=== PATIENT | male | born 1955 | race Caucasian/White ===

== ENCOUNTER 2020-10-31 08:04 | Outpatient (REF) | payer MEDICARE, OTHER, SELFPAY ==
[2020-10-31 11:05] LABS: MANUAL DIFF FLAG NO
[2020-10-31 11:12] LABS: Basophils Percent Auto 0.6 % (0-2); Eosinophils Absolute Auto 0.6 X10*3/uL (0.0-0.4); Eosinophils Percent Auto 8.2 % (0-4); Hematocrit 49.8 % (42-52); Hemoglobin 15.9 g/dl (14.0-18.0); Imm Gran Abs Auto 0.03 X10*3/uL (0.00-0.03); Imm Gran Pct Auto 0.4 % (0.0-0.4); Lymphocytes Absolute Auto 1.6 X10*3/uL (1.2-4.9); Lymphocytes Percent Auto 23.1 % (20-40); Mean Corpuscular HGB Conc 31.9 g/dl (31.0-36.0); Mean Corpuscular Hemoglobin 29.6 pg (27.0-33.0); Mean Corpuscular Volume 92.7 fL (80-98); Mean Platelet Volume 10.3 fL (9.4-12.4); Monocytes Absolute Auto 0.7 X10*3/uL (0.1-1.2); Monocytes Percent Auto 10.1 % (2-11); Neutrophils Absolute Auto 4.1 X10*3/uL (2.0-8.3); Neutrophils Percent Auto 57.6 % (45-73); Platelet Count 194 X10*3/uL (160-400); Red Blood Count 5.37 X10*6/uL (4.60-5.80); Red Cell Distribution Width 14.1 % (11.0-16.0); White Blood Count 7.1 X10*3/uL (4.8-10.8)
[2020-10-31 11:34] LABS: Alanine Aminotransferase 22 U/L (0-40); Albumin Level 4.7 g/dL (3.5-5.0); Alkaline Phosphatase 78 U/L (39-117); Anion Gap 18 (12-20); Aspartate Amino Transferase 18 U/L (5-37); Bilirubin Total 0.6 mg/dL (0.0-1.0); Blood Urea Nitrogen 18 mg/dL (9-16); Calcium 9.7 mg/dL (8.4-10.2); Carbon Dioxide 25 mmol/L (22-29); Chloride 105 mmol/L (96-108); Cholesterol 159 mg/dL; Estimated Glomerular Filt Rate > 60; Glucose Fasting 125 mg/dL (60-99); Glucose Urine UA >=1000 MG/DL (NEG); HDL Cholesterol 39 mg/dL; LDL Cholesterol Calculated 43 mg/dl; Leukocyte Esterase Urine NEG (NEG); Nitrite Urine NEG (NEG); Potassium 4.7 mmol/l (3.3-5.1); Sodium 143 mmol/L (135-145); Specific Gravity - Urine 1.025 (1.005-1.025); Total Protein 7.3 g/dL (6.5-8.0); Triglycerides 387 mg/dL; Urine Blood NEG (NEG); Urine Ketones NEG (NEG); Urine Protein NEG (NEG-TRACE)
[2020-10-31 11:35] LABS: Estimated Average Glucose 131 mg/dL; Hemoglobin A1c % 6.2 %
[2020-10-31 11:37] LABS: Appearance Urine HAZY; Color Urine YELLOW
[2020-10-31 11:39] LABS: Reflex LDLD? No
[2020-10-31 11:45] LABS: Prostate Specific Antigen Scr 2.09 ng/mL (<0.05-4.0)
[2020-10-31 11:46] LABS: Bacteria Urine TRACE /LPF; RBC Urine 0 /HPF (0); Squamous Epithelial Cell Urine TRACE /LPF
[2020-10-31 12:16] LABS: Creatinine Urine 81.24 mg/dL; Microalbum/Creatinine Ratio Ur 20.9 ug/mg cr
== END 2020-10-31 08:05 | disposition home or self-care (01) ==
LOC: HO.HMGCLDS 08:04
PROVIDERS: PCP Internal Medicine; Visit Provider Internal Medicine
DX: E11.9 Type 2 diabetes mellitus without complications (principal); E78.1 Pure hyperglyceridemia; R97.20 Elevated prostate specific antigen [PSA]; R16.2 Hepatomegaly with splenomegaly, not elsewhere classified; I25.2 Old myocardial infarction; Z12.5 Encounter for screening for malignant neoplasm of prostate
CPT/HCPCS: 36415; 80053; 80061; 81001; 82043; 83036; 84153; 85025

== ENCOUNTER 2021-03-29 08:18 | Day surgery (SDC) | payer MEDICARE, OTHER, SELFPAY ==
[2021-03-23 09:53] VITALS: BMI 37.9
--- NOTE | 2021-03-28 09:18 | HO.ANESPROP2 ---
HPI - Anesthesia Eval Consult details Narrative: 65yo M for Upper Endoscopy Per T/C with cardiology, as of 01/2021, no new symptoms/events, next appointment scheduled for 11/2021. 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 (see report below) Per PCP, no issues with penile implant procedure/anesthesia. [facility] Past Medical History Medical History CAD (coronary artery disease) COVID-19 vaccine series completed Diabetes Elevated cholesterol GERD (gastroesophageal reflux disease) Hiatal hernia HTN (hypertension) Myocardial infarction GAUTAM on CPAP RLS (restless legs syndrome) Surgical History Surgical History History of esophagogastroduodenoscopy (EGD) History of penile implant Hx of colonoscopy Hx of inguinal herniorrhaphy Social History Social History Patient Tobacco Use Status: Former Tobacco user Quit Date: 1999 Tobacco use type: Cigarette Use of substances other than those prescribed or required for medical reasons: No Are you DNR?: No Advance Directives: No Advance Directives Information Provided: No Advance Directives on File: No Meds Allergies Allergy/AdvReac Type Severity Reaction Status Date / Time No Known Allergies Allergy Verified 03/23/21 09:50 Home Medications Medication Instructions Recorded Confirmed Last Taken Type aspirin [Aspir-81] 81 mg PO DAILY 03/23/21 03/23/21 Unknown History atorvastatin 1 tab PO DAILY 03/23/21 03/23/21 Unknown History empagliflozin [Jardiance] 1 tab PO DAILY 03/23/21 03/23/21 Unknown History lisinopril 1 tab PO DAILY 03/23/21 03/23/21 Unknown History metformin 2 tab PO BID 03/23/21 03/23/21 Unknown History metoprolol succinate 1 tab PO DAILY 03/23/21 03/23/21 Unknown History omeprazole 1 cap PO DAILY 03/23/21 03/23/21 Unknown History ropinirole 1 tab PO BEDTIME 03/23/21 03/23/21 Unknown History sitagliptin [Januvia] 1 tab PO DAILY 03/23/21 03/23/21 Unknown History Exam Exam Date and Time: March 28, 2021 0918 Height,Weight and Vital Signs: Height 5 ft 6 in Weight 106.594 kg Pertinent Lab Results Pertinent Lab Results: Laboratory Tests 10/31/20 10/31/20 08:15 08:15 WBC 7.1 Hgb 15.9 Hct 49.8 Plt Count 194 Sodium 143 Potassium 4.7 Chloride 105 Carbon Dioxide 25 BUN 18 H Creatinine 1.12 Narrative Narrative: Stress ECHO 01/2021 Normal resting echo at a target heart rate. Stress echo: LV becomes hyperdynamic and all LV segments augmented post exercise. Assessment and Plan Assessment Anesthesia Assessment: Chart Reviewed
--- NOTE | 2021-03-29 | ECG_ITS ---
Test Reason : CAD/STENT, PREOP Blood Pressure : / mmHG Vent. Rate : 073 BPM Atrial Rate : 073 BPM P-R Int : 186 ms QRS Dur : 092 ms QT Int : 370 ms P-R-T Axes : 047 -55 -20 degrees QTc Int : 407 ms Normal sinus rhythm Left anterior fascicular block Abnormal ECG When compared with ECG of 19-AUG-2011 13:36, Left anterior fascicular block is now Present Referred By: Jayde Unger Electronically Signed By:Weston Queen
--- NOTE | 2021-03-29 08:56 | HO.ANESPROP2 ---
[facility] Past Medical History Medical History CAD (coronary artery disease) COVID-19 vaccine series completed Diabetes Elevated cholesterol GERD (gastroesophageal reflux disease) Hiatal hernia HTN (hypertension) Myocardial infarction GAUTAM on CPAP RLS (restless legs syndrome) Surgical History Surgical History History of esophagogastroduodenoscopy (EGD) History of penile implant Hx of colonoscopy Hx of inguinal herniorrhaphy Social History Social History Patient Tobacco Use Status: Former Tobacco user Quit Date: 1999 Tobacco use type: Cigarette Use of substances other than those prescribed or required for medical reasons: No Are you DNR?: No Advance Directives: No Advance Directives Information Provided: No Advance Directives on File: No Meds Allergies Allergy/AdvReac Type Severity Reaction Status Date / Time No Known Allergies Allergy Verified 03/23/21 09:50 Active Medications: Current Medications Generic Name Dose Route Start Last Admin Trade Name Freq PRN Reason Stop Dose Admin Lactated Ringer's 1,000 mls @ 100 mls/hr 03/29/21 08:45 Lr IVCONT .Q10H [facility] Home Medications Medication Instructions Recorded Confirmed Last Taken Type aspirin [Aspir-81] 81 mg PO DAILY 03/23/21 03/23/21 Unknown History atorvastatin 1 tab PO DAILY 03/23/21 03/23/21 Unknown History empagliflozin [Jardiance] 1 tab PO DAILY 03/23/21 03/23/21 Unknown History lisinopril 1 tab PO DAILY 03/23/21 03/23/21 Unknown History metformin 2 tab PO BID 03/23/21 03/23/21 Unknown History metoprolol succinate 1 tab PO DAILY 03/23/21 03/23/21 Unknown History omeprazole 1 cap PO DAILY 03/23/21 03/23/21 Unknown History ropinirole 1 tab PO BEDTIME 03/23/21 03/23/21 Unknown History sitagliptin [Januvia] 1 tab PO DAILY 03/23/21 03/23/21 Unknown History Exam Exam Date and Time: March 29, 2021 0856 Height,Weight and Vital Signs: Height 5 ft 6 in Weight 106.594 kg Airway Mallampati Class: IV TM Dist: >3cm Neck ROM: Full Heart: RRR Lungs: CTA
[2021-03-29 08:58] VITALS: BP 121/69; PULSE 76; RESP 18; TEMP 36.8; O2SAT 93
[2021-03-29 08:58] LABS: Glucose, Whole Blood 112 mg/dL (60-115)
[2021-03-29] MEDS: Lactated Ringers 1,000 ML 100 ML IVCONT (09:21)
[2021-03-29 10:40] VITALS: BP 106/65; PULSE 77; RESP 16; TEMP 37.7; O2SAT 98
--- NOTE | 2021-03-29 10:43 | PM.OP ---
Brief Operative Note Date of Service: 03/29/21 Pre-op diagnosis: GERD, Bedoya's Esophagus Post-op diagnosis: other (Hiatal hernia, Gastric retention) Procedure: EGD with biopsies Surgeon: Marciano Rodríguez Anesthesia: MAC Was an Emergency Communications Operator used for this Procedure?: No Estimated blood loss (mL): 3.0 Pathology: other (A. EG Junction at 35cm) Condition: stable Disposition: PACU
[2021-03-29 10:55] VITALS: BP 115/74; PULSE 79; RESP 17; TEMP 36.6; O2SAT 98
--- NOTE | 2021-03-29 15:58 | HO.POSTANES ---
Post Anesthesia Evaluation Post Anesthesia Evaluation Vital Signs: Vital Signs Temp Pulse Resp BP Pulse Ox 03/29/21 10:55 97.8 F 79 17 115/74 98 03/29/21 10:40 99.8 F 77 16 106/65 98 03/29/21 08:58 98.2 F 76 18 121/69 93 Anesthesia: Monitored Mental Status: Awake Pain Control: Satisfactory Nausea/Vomiting: None Hydration: Adequate Anesthesia-Related Issues: No Anes. Related Issues Comments: a
--- NOTE | 2021-03-29 21:06 | OP_ITS ---
SURGEON: Marciano Rodríguez MD INDICATIONS: The patient presents for evaluation of gastroesophageal reflux and Bedoya's esophagus. Full consent obtained from him for this, including risks of bleeding and perforation. PREOPERATIVE DIAGNOSIS: POSTOPERATIVE DIAGNOSIS: PROCEDURE PERFORMED: Esophagogastroduodenoscopy with biopsies. ESTIMATED BLOOD LOSS: COMPLICATIONS: ANESTHESIA: Medication used, monitored anesthesia care. ASSISTANTS: SPECIMENS: PREOPERATIVE DIAGNOSES: Gastroesophageal reflux and Bedoya's esophagus. POSTOPERATIVE DIAGNOSES: Gastroesophageal reflux, Bedoya's esophagus, hiatal hernia, gastric retention. DESCRIPTION OF PROCEDURE: The patient was placed in the left lateral decubitus position. The Olympus video gastroscope was passed in the posterior oropharynx and upper esophagus under direct vision. The scope was passed slowly to the distal esophagus. The gastroesophageal junction appeared at 35 cm. There was a small area of probable Bedoya esophagus just above the EG junction at 35 cm. There was no associated esophagitis nor any mass. There was a moderate-sized hiatal hernia. The scope entered into the stomach. There was a moderate amount of retained old appearing food. I was able to advance to the pylorus and the duodenum was cannulated to the descending portion. The duodenum including the bulb appeared normal without mass or ulceration. The scope was withdrawn back in the stomach. The pyloric channel appeared normal. There was good peristalsis in the stomach. The majority of the stomach both in the forward viewing and retroflexed positions was obscured by the retained food, but I did not visualize any obvious ulcer disease nor mass. The scope was straightened and withdrawn back to the esophagus. Biopsies were obtained just above the EG junction at 35 cm. Proximal to that, the esophageal mucosa appeared normal. The scope was withdrawn from the patient. He tolerated the procedure well and was returned to recovery area in stable condition. IMPRESSION: Hiatal hernia, gastroesophageal reflux, history of Bedoya's esophagus. PLAN: The results of biopsy will be checked. Assuming there is no dysplasia, I would recommend a repeat upper endoscopy in 3 years. He will continue his current regimen of omeprazole. He was advised to resume his aspirin by tomorrow morning. He was taking it up until today.Given today's biopsies, I will just have him wait until tomorrow to take it again. He is due for a followup colonoscopy next year as well. In regard to the retained gastric contents, I suspect this is probably related to having him had a late meal last evening. I shall discuss this with him and his . He did not have any previous symptoms of early satiety, nausea, nor vomiting. However, if need be, I will order an outpatient gastric emptying study. MD FRANCES Madrigal/GLENYS / [id number] MTDD
== END 2021-03-29 11:19 | disposition home or self-care (01) ==
PROVIDERS: PCP Internal Medicine; Visit Provider Internal Medicine
PROC: 0DJ08ZZ Inspection of Upper Intestinal Tract, Via Natural or Artificial Opening Endoscopic (ICD-10-PCS; CPT 43235; principal; 2021-03-29 09:30)
DX: K22.70 Barrett's esophagus without dysplasia (principal); K21.9 Gastro-esophageal reflux disease without esophagitis; K44.9 Diaphragmatic hernia without obstruction or gangrene; I10 Essential (primary) hypertension; E11.9 Type 2 diabetes mellitus without complications; G47.33 Obstructive sleep apnea (adult) (pediatric); Z99.89 Dependence on other enabling machines and devices; Z79.899 Other long term (current) drug therapy; Z79.82 Long term (current) use of aspirin
CPT/HCPCS: 43239; 82947; 88305; 93005

== ENCOUNTER → 2021-05-15 07:37 | Outpatient (BNVA) | payer SELFPAY | PROVIDERS: PCP Internal Medicine; Visit Provider Internal Medicine | DX: Z02.79 Encounter for issue of other medical certificate (principal) ==

== ENCOUNTER 2021-05-16 10:51 | Outpatient (REF) | payer MEDICARE, OTHER, SELFPAY ==
[2021-05-16 11:26] LABS: Estimated Average Glucose 131 mg/dL; Hemoglobin A1c % 6.2 %
[2021-05-16 12:07] LABS: Alanine Aminotransferase 25 U/L (0-40); Albumin Level 4.6 g/dL (3.5-5.0); Alkaline Phosphatase 78 U/L (39-117); Aspartate Amino Transferase 27 U/L (5-37); Bilirubin Direct 0.3 mg/dL (0.0-0.5); Bilirubin Total 0.8 mg/dL (0.0-1.0); Cholesterol 152 mg/dL; Glucose Fasting 134 mg/dL (60-99); HDL Cholesterol 33 mg/dL; Total Protein 7.2 g/dL (6.5-8.0); Triglycerides 418 mg/dL
[2021-05-16 12:42] LABS: Reflex LDLD? Yes
[2021-05-17 22:32] LABS: LDL Cholesterol Direct 69 mg/dL (<100)
== END 2021-05-16 10:52 | disposition home or self-care (01) ==
LOC: HO.LNP 10:51
PROVIDERS: Visit Provider Internal Medicine
DX: E11.9 Type 2 diabetes mellitus without complications (principal); E78.1 Pure hyperglyceridemia
CPT/HCPCS: 80061; 80076; 82947; 83036; 83721

== ENCOUNTER 2021-06-27 10:24 | Outpatient (REF) | payer MEDICARE, OTHER, SELFPAY | END 2021-06-27 10:25 | disposition home or self-care (01) | LOC: HO.LAB 10:24 | PROVIDERS: PCP Internal Medicine; Visit Provider Internal Medicine | DX: Z20.822 Contact with and (suspected) exposure to COVID-19 (principal) | CPT/HCPCS: C9803; U0003; U0005 ==

== ENCOUNTER → 2021-08-30 07:40 | Outpatient (REF) | payer MEDICARE, OTHER, SELFPAY ==
--- NOTE | ~2021-08-30 | NM_ITS ---
EXAMINATION: TN RADIONUCLIDE SOLID FOOD GASTRIC EMPTYING 4-HOUR STUDY CLINICAL INFORMATION: Retained food in the stomach, GERD. COMPARISON: None TECHNIQUE: A standard meal consisting of 4 oz of Egg Beaters brand tagged with 1.0 microcuries Tc-99m Sulfur Colloid, 8 oz water and 2 slices of toast with jelly was administered orally to the patient. Images were obtained using a dual head gamma camera in the anterior and posterior projections over of the stomach immediately post ingestion and at hourly intervals up to 4 hours post ingestion. The anterior and posterior counts at each time interval were averaged using the geometric mean and expressed as percentage of the immediate post ingestion counts. FINDINGS: There is good visualization of activity in the stomach immediately post ingestion. As the study progresses, there is good clearance of activity from the stomach and visualization of progressively increasing small bowel activity. By the end of the study, there is almost no retention noted in the stomach. Retention in the stomach at each time interval was: 1 hour 63% (normal 37%-90%) 2 hours 37% (normal 30%-60%) 3 hours 1% 4 hours not imaged (normal 0%-10%) TN/TN gastric emptying study IMPRESSION: Normal 4-hour solid food gastric emptying study.
== END ==
LOC: HO.NUCMED 07:40
PROVIDERS: Visit Provider Internal Medicine
DX: K21.9 Gastro-esophageal reflux disease without esophagitis (principal); K31.89 Other diseases of stomach and duodenum
CPT/HCPCS: 78264; A9541

== ENCOUNTER 2021-11-21 11:11 | Outpatient (REF) | payer MEDICARE, OTHER, SELFPAY ==
[2021-11-21 11:14] LABS: MANUAL DIFF FLAG NO
[2021-11-21 11:29] LABS: Basophils Percent Auto 0.5 % (0-2); Eosinophils Absolute Auto 0.4 X10*3/uL (0.0-0.4); Eosinophils Percent Auto 4.6 % (0-4); Hematocrit 50.5 % (42.0-52.0); Hemoglobin 16.4 g/dl (14.0-18.0); Imm Gran Abs Auto 0.04 X10*3/uL (0.00-0.03); Imm Gran Pct Auto 0.5 % (0.0-0.4); Lymphocytes Absolute Auto 2.1 X10*3/uL (1.2-4.9); Lymphocytes Percent Auto 24.4 % (20-40); Mean Corpuscular HGB Conc 32.5 g/dl (31.0-36.0); Mean Corpuscular Hemoglobin 29.7 pg (27.0-33.0); Mean Corpuscular Volume 91.5 fL (80.0-98.0); Mean Platelet Volume 10.7 fL (9.4-12.4); Monocytes Absolute Auto 0.9 X10*3/uL (0.1-1.2); Monocytes Percent Auto 10.6 % (2-11); Neutrophils Absolute Auto 5.2 x10*3/uL (2.0-8.3); Neutrophils Percent Auto 59.4 % (45-73); Platelet Count 213 X10*3/uL (160-400); Red Blood Count 5.52 X10*6/uL (4.60-5.80); Red Cell Distribution Width 14.2 % (11.0-16.0); White Blood Count 8.8 X10*3/uL (4.8-10.8)
[2021-11-21 12:03] LABS: Alanine Aminotransferase 24 U/L (0-40); Albumin Level 4.6 g/dL (3.5-5.0); Alkaline Phosphatase 78 U/L (39-117); Anion Gap 15 (12-20); Aspartate Amino Transferase 27 U/L (5-37); Bilirubin Direct 0.3 mg/dL (0.0-0.5); Blood Urea Nitrogen 18 mg/dL (9-16); Carbon Dioxide 26 mmol/L (22-29); Chloride 104 mmol/L (96-108); Cholesterol 149 mg/dL; Estimated Glomerular Filt Rate > 60; Glucose Fasting 112 mg/dL (60-99); HDL Cholesterol 34 mg/dL; Potassium 4.6 mmol/L (3.3-5.1); Sodium 140 mmol/L (135-145); Total Protein 7.4 g/dL (6.5-8.0); Triglycerides 430 mg/dL
[2021-11-21 12:09] LABS: PSA,Total (Free>4and<10) 1.66 ng/mL (0.00-4.00)
[2021-11-21 12:41] LABS: Estimated Average Glucose 134 mg/dL; Hemoglobin A1c % 6.3 %
== END 2021-11-21 11:12 | disposition home or self-care (01) ==
LOC: HO.LNP 11:11
PROVIDERS: PCP Internal Medicine; Visit Provider Internal Medicine
DX: Z12.5 Encounter for screening for malignant neoplasm of prostate (principal); E87.1 Hypo-osmolality and hyponatremia; R97.20 Elevated prostate specific antigen [PSA]; R16.2 Hepatomegaly with splenomegaly, not elsewhere classified; E11.40 Type 2 diabetes mellitus with diabetic neuropathy, unspecified
CPT/HCPCS: 80053; 80061; 80076; 82248; 83036; 84153; 85025

== ENCOUNTER 2022-02-16 10:45 | Outpatient (REF) | payer MEDICARE, OTHER, SELFPAY ==
[2022-02-16 11:10] LABS: Appearance Urine CLEAR; Color Urine YELLOW; Glucose Urine UA >=1000 MG/DL (NEG); Leukocyte Esterase Urine NEG (NEG); Nitrite Urine NEG (NEG); PH 5.5 (5.0-8.0); Urine Blood NEG (NEG); Urine Ketones NEG (NEG); Urine Protein NEG (NEG-TRACE)
[2022-02-16 11:16] LABS: Creatinine Urine 78.12 mg/dL; Microalbum/Creatinine Ratio Ur 6.4 ug/mg cr
[2022-02-16 11:59] LABS: Squamous Epithelial Cell Urine TRACE /LPF
[2022-02-16 12:00] LABS: RBC Urine 0 /HPF (0); WBC Urine 0-2 /HPF (0-4)
== END 2022-02-16 10:46 | disposition home or self-care (01) ==
LOC: HO.LNP 10:45
PROVIDERS: Visit Provider Internal Medicine
DX: E11.40 Type 2 diabetes mellitus with diabetic neuropathy, unspecified (principal)
CPT/HCPCS: 81001; 82043

== ENCOUNTER → 2022-04-30 09:49 | Outpatient (BNVA) | payer SELFPAY | PROVIDERS: PCP Internal Medicine; Visit Provider Internal Medicine | DX: Z02.79 Encounter for issue of other medical certificate (principal) ==

== ENCOUNTER 2022-08-23 10:37 | Outpatient (REF) | payer MEDICARE, OTHER, SELFPAY ==
[2022-08-23 10:59] LABS: Alanine Aminotransferase 35 U/L (0-40); Albumin Level 4.4 g/dL (3.5-5.0); Alkaline Phosphatase 86 U/L (39-117); Aspartate Amino Transferase 33 U/L (5-37); Bilirubin Direct 0.3 mg/dL (0.0-0.5); Bilirubin Total 0.7 mg/dL (0.0-1.0); Cholesterol 142 mg/dL; Glucose Fasting 117 mg/dL (60-99); HDL Cholesterol 31 mg/dL; LDL Cholesterol Calculated 38 mg/dl; Total Protein 7.2 g/dL (6.5-8.0); Triglycerides 365 mg/dL
[2022-08-23 12:27] LABS: Estimated Average Glucose 134 mg/dL; Hemoglobin A1c % 6.3 %
[2022-08-23 14:57] LABS: Reflex LDLD? No
== END 2022-08-23 10:38 | disposition home or self-care (01) ==
LOC: HO.LNP 10:37
PROVIDERS: Visit Provider Internal Medicine
DX: E11.9 Type 2 diabetes mellitus without complications (principal); E78.1 Pure hyperglyceridemia
CPT/HCPCS: 80061; 80076; 82947; 83036

== ENCOUNTER 2022-08-29 06:19 | Day surgery (SDC) | payer MEDICARE, OTHER, SELFPAY ==
--- NOTE | 2022-08-28 10:33 | HO.ANESPROP2 ---
Documented by User: Jayde Unger NP 08/28/22 10:38 HPI - Anesthesia Eval Consult details Narrative: 67yo M for Colonoscopy CAD with [place] and stent x 2018 (Stable at yearly cardio appointment) [facility] Past Medical History Medical History CAD (coronary artery disease) COVID-19 vaccine series completed Diabetes Elevated cholesterol GERD (gastroesophageal reflux disease) Hiatal hernia HTN (hypertension) Myocardial infarction GAUTAM on CPAP RLS (restless legs syndrome) Surgical History Surgical History History of esophagogastroduodenoscopy (EGD) History of penile implant Hx of colonoscopy Hx of inguinal herniorrhaphy Social History Social History Patient Tobacco Use Status: Former Tobacco user Quit Date: 20 years ago Tobacco use type: Cigarette Use of substances other than those prescribed or required for medical reasons: No Are you DNR?: No Advance Directives: No Advance Directives Information Provided: Yes Meds Allergies Allergy/AdvReac Type Severity Reaction Status Date / Time No Known Allergies Allergy Verified 03/23/21 09:50 Home Medications Medication Instructions Recorded Confirmed Last Taken Type aspirin 81 mg tablet,delayed 81 mg PO DAILY 03/23/21 03/23/21 08/26/22 History release atorvastatin 80 mg tablet 1 tab PO DAILY 03/23/21 03/23/21 Unknown History empagliflozin 25 mg tablet 1 tab PO DAILY 03/23/21 03/23/21 Unknown History (Jardiance) lisinopril 5 mg tablet 1 tab PO DAILY 03/23/21 03/23/21 08/29/22 History metformin 500 mg tablet 2 tab PO BID 03/23/21 03/23/21 Unknown History metoprolol succinate 50 mg 1 tab PO DAILY 03/23/21 03/23/21 Unknown History tablet,extended release 24 hr omeprazole 40 mg capsule,delayed 1 cap PO DAILY 03/23/21 03/23/21 Unknown History release ropinirole 1 mg tablet 1 tab PO BEDTIME 03/23/21 03/23/21 Unknown History sitagliptin 100 mg tablet (Januvia) 1 tab PO DAILY 03/23/21 03/23/21 Unknown History Exam Exam Date and Time: August 28, 2022 1033 Pertinent Lab Results Pertinent Lab Results: Laboratory Tests 11/21/21 11/21/21 09:30 09:30 WBC 8.8 Hgb 16.4 Hct 50.5 Plt Count 213 Sodium 140 Potassium 4.6 Chloride 104 Carbon Dioxide 26 BUN 18 H Creatinine 1.17 Narrative Narrative: EKG 11/2021 NSR @ 64 LAD Otherwise normal Assessment and Plan Assessment Anesthesia Assessment: Chart Reviewed Documented by User: Manjula Martinez MD 08/29/22 07:19 [facility] Past Medical History Medical History CAD (coronary artery disease) COVID-19 vaccine series completed Diabetes Elevated cholesterol GERD (gastroesophageal reflux disease) Hiatal hernia HTN (hypertension) Myocardial infarction GAUTAM on CPAP RLS (restless legs syndrome) Family History Family history of problems with anesthesia: No Surgical History Surgical History History of esophagogastroduodenoscopy (EGD) History of penile implant Hx of colonoscopy Hx of inguinal herniorrhaphy History of Problems with Anesthesia: No Social History Social History Patient Tobacco Use Status: Former Tobacco user Quit Date: 20 years ago Tobacco use type: Cigarette Use of substances other than those prescribed or required for medical reasons: No Are you DNR?: No Advance Directives: No Advance Directives Information Provided: Yes Meds Allergies Allergy/AdvReac Type Severity Reaction Status Date / Time No Known Allergies Allergy Verified 03/23/21 09:50 Home Medications Medication Instructions Recorded Confirmed Last Taken Type aspirin 81 mg tablet,delayed 81 mg PO DAILY 03/23/21 03/23/21 08/26/22 History release atorvastatin 80 mg tablet 1 tab PO DAILY 03/23/21 03/23/21 Unknown History empagliflozin 25 mg tablet 1 tab PO DAILY 03/23/21 03/23/21 Unknown History (Jardiance) lisinopril 5 mg tablet 1 tab PO DAILY 03/23/21 03/23/21 08/29/22 History metformin 500 mg tablet 2 tab PO BID 03/23/21 03/23/21 Unknown History metoprolol succinate 50 mg 1 tab PO DAILY 03/23/21 03/23/21 Unknown History tablet,extended release 24 hr omeprazole 40 mg capsule,delayed 1 cap PO DAILY 03/23/21 03/23/21 Unknown History release ropinirole 1 mg tablet 1 tab PO BEDTIME 03/23/21 03/23/21 Unknown History sitagliptin 100 mg tablet (Octuvia) 1 tab PO DAILY 03/23/21 03/23/21 Unknown History Exam Airway Mallampati Class: II TM Dist: >3cm Neck ROM: Full Assessment and Plan Assessment Anesthesia Assessment: Anesthesia Plan Discussed Final Anesthetic Review Family History of Problems with Anesthesia: No History of Problems with Anesthesia: No NPO: Yes ASA Class: III Final Preanesthetic Review: No Changes in Pt Med Stat, Meds/Allgs Chart Reviewed, Consent Obtained/Reviewed and Anes Risks/Benef Reviewed Patient Risk: Intermediate Procedure Risk: Low Anesthetic Plan Anesthetic Plan: MAC: Disposition: Standard PACU
[2022-08-29 06:36] VITALS: BMI 35.9
[2022-08-29 06:39] VITALS: BP 128/78; PULSE 77; RESP 18; TEMP 36.4; O2SAT 97
[2022-08-29] MEDS: Lactated Ringers 1,000 ML 100 ML IVCONT (06:56)
[2022-08-29 07:02] LABS: Glucose, Whole Blood 109 mg/dL (60-115)
[2022-08-29 08:29] VITALS: BP 90/40; PULSE 73; RESP 16; TEMP 36.5; O2SAT 95
--- NOTE | 2022-08-29 08:32 | PM.OP ---
Brief Operative Note Date of Service: 08/29/22 Pre-op diagnosis: Screening Post-op diagnosis: other (Colon polyp) Procedure: Colonoscopy to the cecum and TI with hot snare polypectomy x 1 , and placement of 1 Resolution clip Surgeon: Marciano Rodríguez Anesthesia: MAC Was an Rubber Compounder Mixer used for this Procedure?: No Estimated blood loss (mL): 0 Pathology: other (A. Cecal polyp) Condition: stable Disposition: PACU
[2022-08-29 08:44] VITALS: BP 100/58; PULSE 64; RESP 18; TEMP 36.5; O2SAT 96
--- NOTE | 2022-08-29 09:18 | OP_ITS ---
SURGEON: Marciano Rodríguez MD INDICATIONS: The patient presents for evaluation of colorectal cancer screening. Full consent has been obtained from him for this, including risks of bleeding and perforation. PREOPERATIVE DIAGNOSIS: Colorectal cancer screening. POSTOPERATIVE DIAGNOSIS: Colorectal cancer screening, colon polyp, diverticulosis and internal hemorrhoids. PROCEDURE PERFORMED: Colonoscopy to cecum and terminal ileum with hot snare polypectomy and placement of one resolution clip. ESTIMATED BLOOD LOSS: COMPLICATIONS: ANESTHESIA: ASSISTANTS: SPECIMENS: PREOPERATIVE MEDICATION USED: Monitored anesthesia care. DESCRIPTION OF PROCEDURE: The patient was placed in the left lateral decubitus position. The digital rectal exam revealed no abnormalities. The Olympus video pediatric colonoscope was entered into the rectum and advanced easily to the cecum. Once in the cecum, I did identify a cecal pouch with appendiceal orifice and a normal-appearing ileocecal valve. The terminal ileum was cannulated and appeared normal. Scope was withdrawn back in the colon. The entire cecum and the ileocecal valve were well visualized. In the cecum, near the area of the appendiceal orifice, was an approximately 10 mm slightly raised polyp, which was removed by hot snare polypectomy and recovered by suction. The polypectomy site appeared clean, without any sign of residual polyp nor bleeding. A single resolution clip was applied with good deployment and good hemostasis, as he had to go back on his aspirin. The remainder of the cecum appeared normal. The scope was then slowly withdrawn assessing all mucosal surfaces carefully. Preparation was excellent. I did not visualize any sign of other polyps, colitis, nor angiodysplasia. There was a mild amount of sigmoid diverticulosis. In the rectum, scope was retroflexed, visualizing internal hemorrhoids, but no other pathology. The rectal mucosa appeared normal. The scope was straightened and withdrawn from the patient. He tolerated the procedure well and was returned to the recovery area in stable condition. IMPRESSION: 1. Colon polyp. 2. Diverticulosis. 3. Internal hemorrhoids. PLAN: The results of the pathology will be checked. If this is a tubular adenoma, I would recommend a followup coloscopy in 5 years. If it is only hyperplastic, then I would recommend a followup coloscopy in 10 years, although at that point, he would be almost 78 and we would need to take his clinical condition into account. He was advised to resume his aspirin in 24 hours. MD FRANCES Madrigal/GLENYS / [id number]
== END 2022-08-29 09:22 | disposition home or self-care (01) ==
PROVIDERS: PCP Internal Medicine; Visit Provider Internal Medicine
PROC: 0DJD8ZZ Inspection of Lower Intestinal Tract, Via Natural or Artificial Opening Endoscopic (ICD-10-PCS; CPT 45378; principal; 2022-08-29 07:30)
DX: Z12.11 Encounter for screening for malignant neoplasm of colon (principal); D12.0 Benign neoplasm of cecum; K57.30 Diverticulosis of large intestine without perforation or abscess without bleeding; K64.8 Other hemorrhoids; K21.9 Gastro-esophageal reflux disease without esophagitis; K22.70 Barrett's esophagus without dysplasia; G47.33 Obstructive sleep apnea (adult) (pediatric); I10 Essential (primary) hypertension; E78.5 Hyperlipidemia, unspecified; E11.9 Type 2 diabetes mellitus without complications; Z79.84 Long term (current) use of oral hypoglycemic drugs; Z79.899 Other long term (current) drug therapy; Z79.82 Long term (current) use of aspirin; Z99.89 Dependence on other enabling machines and devices; Z87.891 Personal history of nicotine dependence; Z96.0 Presence of urogenital implants
CPT/HCPCS: 45385; 82947; 88305; J2250

== ENCOUNTER 2022-11-29 08:43 | Outpatient (REF) | payer MEDICARE, OTHER, SELFPAY ==
[2022-11-29 09:41] LABS: Alanine Aminotransferase 36 U/L (0-40); Albumin Level 4.2 g/dL (3.5-5.0); Alkaline Phosphatase 80 U/L (39-117); Anion Gap 15 (12-20); Aspartate Amino Transferase 41 U/L (5-37); Blood Urea Nitrogen 14 mg/dL (9-16); Calcium 9.1 mg/dL (8.4-10.2); Carbon Dioxide 23 mmol/L (22-29); Chloride 109 mmol/L (96-108); Cholesterol 148 mg/dL; Estimated Glomerular Filt Rate > 60; Glucose Random 139 mg/dL (60-115); HDL Cholesterol 32 mg/dL; LDL Cholesterol Calculated 48 mg/dl; Potassium 4.6 mmol/L (3.3-5.1); Sodium 142 mmol/L (135-145); Total Protein 6.6 g/dL (6.5-8.0); Triglycerides 341 mg/dL
== END 2022-11-29 08:44 | disposition home or self-care (01) ==
LOC: HO.LAB 08:43
PROVIDERS: PCP Internal Medicine; Visit Provider Nurse Practitioner Acute Care
DX: I25.118 Atherosclerotic heart disease of native coronary artery with other forms of angina pectoris (principal)
CPT/HCPCS: 36415; 80053; 80061

== ENCOUNTER 2023-02-14 10:36 | Outpatient (REF) | payer MEDICARE, OTHER, SELFPAY ==
[2023-02-14 10:41] LABS: MANUAL DIFF FLAG NO
[2023-02-14 10:54] LABS: Basophils Absolute Auto 0.1 X10*3/uL (0.0-0.2); Basophils Percent Auto 0.8 % (0-2); Eosinophils Absolute Auto 0.9 X10*3/uL (0.0-0.4); Eosinophils Percent Auto 11.6 % (0-4); Hematocrit 49.5 % (42.0-52.0); Hemoglobin 16.2 g/dl (14.0-18.0); Imm Gran Abs Auto 0.03 X10*3/uL (0.00-0.03); Imm Gran Pct Auto 0.4 % (0.0-0.4); Lymphocytes Percent Auto 25.7 % (20-40); Mean Corpuscular HGB Conc 32.7 g/dl (31.0-36.0); Mean Corpuscular Hemoglobin 29.9 pg (27.0-33.0); Mean Corpuscular Volume 91.3 fL (80.0-98.0); Mean Platelet Volume 10.2 fL (9.4-12.4); Monocytes Absolute Auto 0.9 X10*3/uL (0.1-1.2); Monocytes Percent Auto 11.4 % (2-11); Neutrophils Absolute Auto 3.9 x10*3/uL (2.0-8.3); Neutrophils Percent Auto 50.1 % (45-73); Platelet Count 197 X10*3/uL (160-400); Red Blood Count 5.42 X10*6/uL (4.60-5.80); Red Cell Distribution Width 14.6 % (11.0-16.0); White Blood Count 7.7 X10*3/uL (4.8-10.8)
[2023-02-14 10:58] LABS: Appearance Urine Clear; Color Urine Yellow; Glucose Urine UA >=1000 mg/dL (Negative); Leukocyte Esterase Urine Negative (Negative); Nitrite Urine Negative (Negative); PH 5.5 (5.0-9.0); Specific Gravity - Urine >= 1.030 (1.005-1.025); UMIC TRIGGER UACC YES; Urine Blood Negative (Negative); Urine Ketones Negative (Negative); Urine Protein Negative (Neg-Trace)
[2023-02-14 11:05] LABS: Bacteria Urine None Seen (None Seen); Hyaline Casts Urine 0-2 /LPF (0-2); RBC Urine 0-2 /HPF (0-2); Squamous Epithelial Cell Urine 0-2 /HPF (0-2); WBC Urine 0-5 /HPF (0-5)
[2023-02-14 11:14] LABS: Estimated Average Glucose 134 mg/dL; Hemoglobin A1c % 6.3 %
[2023-02-14 11:27] LABS: Alanine Aminotransferase 29 U/L (0-40); Albumin Level 4.6 g/dL (3.5-5.0); Alkaline Phosphatase 83 U/L (39-117); Anion Gap 13 (12-20); Aspartate Amino Transferase 38 U/L (5-37); Bilirubin Total 0.9 mg/dL (0.0-1.0); Blood Urea Nitrogen 13 mg/dL (9-16); Calcium 9.4 mg/dL (8.4-10.2); Carbon Dioxide 27 mmol/L (22-29); Chloride 107 mmol/L (96-108); Cholesterol 142 mg/dL; Estimated Glomerular Filt Rate > 60; Glucose Fasting 118 mg/dL (60-99); HDL Cholesterol 33 mg/dL; LDL Cholesterol Calculated 49 mg/dl; Potassium 4.5 mmol/L (3.3-5.1); Sodium 142 mmol/L (135-145); Total Protein 7.1 g/dL (6.5-8.0); Triglycerides 302 mg/dL
[2023-02-14 11:46] LABS: PSA,Total (Free>4and<10) 1.47 ng/mL (0.00-4.00)
[2023-02-14 11:47] LABS: Microalbum/Creatinine Ratio Ur 15.7 ug/mg cr
== END 2023-02-14 10:37 | disposition home or self-care (01) ==
LOC: HO.LNP 10:36
PROVIDERS: Visit Provider Internal Medicine
DX: Z12.5 Encounter for screening for malignant neoplasm of prostate (principal); E78.1 Pure hyperglyceridemia; R97.20 Elevated prostate specific antigen [PSA]; E11.40 Type 2 diabetes mellitus with diabetic neuropathy, unspecified
CPT/HCPCS: 80053; 80061; 81001; 82043; 83036; 84153; 85025

== ENCOUNTER → 2023-03-25 07:31 | Outpatient (BNVA) | payer SELFPAY | PROVIDERS: PCP Internal Medicine; Visit Provider Internal Medicine | DX: Z02.79 Encounter for issue of other medical certificate (principal) ==

== ENCOUNTER 2023-08-13 07:10 | Outpatient (REF) | payer MEDICARE, OTHER, SELFPAY ==
[2023-08-13 07:56] LABS: Estimated Average Glucose 128 mg/dL; Hemoglobin A1c % 6.1 % (<6.0)
[2023-08-13 08:14] LABS: Alanine Aminotransferase 27 U/L (0-40); Albumin Level 4.3 g/dL (3.5-5.0); Alkaline Phosphatase 81 U/L (39-117); Aspartate Amino Transferase 28 U/L (5-37); Bilirubin Direct 0.3 mg/dL (0.0-0.5); Bilirubin Total 0.8 mg/dL (0.0-1.0); Glucose Fasting 139 mg/dL (60-99); Total Protein 7.1 g/dL (6.5-8.0)
[2023-08-13 08:19] LABS: Cholesterol 147 mg/dL (<200); HDL Cholesterol 31 mg/dL (>40); Triglycerides 490 mg/dL (<150)
[2023-08-13 08:31] LABS: Reflex LDLD? Yes
[2023-08-15 00:29] LABS: LDL Cholesterol Direct 51 mg/dL (<100)
== END 2023-08-13 07:11 | disposition home or self-care (01) ==
LOC: HO.LAB 07:10
PROVIDERS: PCP Internal Medicine; Visit Provider Internal Medicine
DX: E11.9 Type 2 diabetes mellitus without complications (principal); E78.1 Pure hyperglyceridemia
CPT/HCPCS: 36415; 80061; 80076; 82947; 83036; 83721

== ENCOUNTER 2024-02-18 12:49 | Outpatient (REF) | payer MEDICARE, OTHER, SELFPAY ==
[2024-02-18 12:59] LABS: MANUAL DIFF FLAG NO
[2024-02-18 13:06] LABS: Basophils Absolute Auto 0.1 X10*3/uL (0.0-0.2); Basophils Percent Auto 0.8 % (0-2); Eosinophils Absolute Auto 0.4 X10*3/uL (0.0-0.4); Eosinophils Percent Auto 6.5 % (0-4); Hematocrit 45.9 % (42.0-52.0); Hemoglobin 15.2 g/dl (14.0-18.0); Imm Gran Abs Auto 0.07 X10*3/uL (0.00-0.03); Imm Gran Pct Auto 1.1 % (0.0-0.4); Lymphocytes Absolute Auto 1.8 X10*3/uL (1.2-4.9); Lymphocytes Percent Auto 29.2 % (20-40); Mean Corpuscular HGB Conc 33.1 g/dl (31.0-36.0); Mean Corpuscular Hemoglobin 30.5 pg (27.0-33.0); Mean Platelet Volume 10.7 fL (9.4-12.4); Monocytes Absolute Auto 0.7 X10*3/uL (0.1-1.2); Monocytes Percent Auto 12.1 % (2-11); Neutrophils Absolute Auto 3.1 x10*3/uL (2.0-8.3); Neutrophils Percent Auto 50.3 % (45-73); Platelet Count 189 X10*3/uL (160-400); Red Blood Count 4.99 X10*6/uL (4.60-5.80); Red Cell Distribution Width 14.7 % (11.0-16.0); White Blood Count 6.1 X10*3/uL (4.8-10.8)
[2024-02-18 13:13] LABS: Appearance Urine Clear; Color Urine Yellow; Glucose Urine UA >=1000 mg/dL (Negative); Leukocyte Esterase Urine Negative (Negative); Nitrite Urine Negative (Negative); PH 5.5 (5.0-9.0); Specific Gravity - Urine >= 1.030 (1.005-1.025); UMIC TRIGGER UACC YES; Urine Blood Negative (Negative); Urine Ketones Negative (Negative); Urine Protein Negative (Neg-Trace)
[2024-02-18 13:17] LABS: Alanine Aminotransferase 25 U/L (0-40); Albumin Level 4.4 g/dL (3.5-5.0); Alkaline Phosphatase 83 U/L (39-117); Anion Gap 15 (12-20); Aspartate Amino Transferase 33 U/L (5-37); Bilirubin Total 0.8 mg/dL (0.0-1.0); Blood Urea Nitrogen 15 mg/dL (9-16); Calcium 9.7 mg/dL (8.4-10.2); Carbon Dioxide 24 mmol/L (22-29); Chloride 107 mmol/L (96-108); Cholesterol 140 mg/dL (<200); Estimated Glomerular Filt Rate > 60; Glucose Fasting 132 mg/dL (60-99); HDL Cholesterol 33 mg/dL (>40); Potassium 4.7 mmol/L (3.3-5.1); Sodium 141 mmol/L (135-145); Total Protein 7.2 g/dL (6.5-8.0); Triglycerides 516 mg/dL (<150)
[2024-02-18 13:19] LABS: Bacteria Urine None Seen (None Seen); Hyaline Casts Urine 0-2 /LPF (0-2); RBC Urine 0-2 /HPF (0-2); Squamous Epithelial Cell Urine 0-2 /HPF (0-2); WBC Urine 0-5 /HPF (0-5)
[2024-02-18 13:39] LABS: PSA,Total (Free>4and<10) 1.16 ng/mL (0.00-4.00)
[2024-02-18 14:15] LABS: Creatinine Urine 63.44 mg/dL; Microalbum/Creatinine Ratio Ur 33.1 ug/mg cr (<30)
== END 2024-02-18 12:50 | disposition home or self-care (01) ==
LOC: HO.LNP 12:49
PROVIDERS: Visit Provider Internal Medicine
DX: R97.20 Elevated prostate specific antigen [PSA] (principal); E11.40 Type 2 diabetes mellitus with diabetic neuropathy, unspecified; Z12.5 Encounter for screening for malignant neoplasm of prostate
CPT/HCPCS: 80053; 80061; 81001; 81003; 82043; 82570; 84153; 85025

== ENCOUNTER 2024-02-25 11:18 | Outpatient (REF) | payer MEDICARE, OTHER, SELFPAY ==
[2024-02-25 12:38] LABS: Estimated Average Glucose 151 mg/dL; Hemoglobin A1c % 6.9 % (<6.0)
[2024-02-26 11:48] LABS: LDL Cholesterol Direct 53 mg/dL (<100)
== END 2024-02-25 11:19 | disposition home or self-care (01) ==
LOC: HO.LNP 11:18
PROVIDERS: Visit Provider Internal Medicine
DX: I25.2 Old myocardial infarction (principal); E11.40 Type 2 diabetes mellitus with diabetic neuropathy, unspecified
CPT/HCPCS: 83036; 83721

== ENCOUNTER → 2024-03-25 07:36 | Outpatient (BNVA) | payer SELFPAY | PROVIDERS: PCP Internal Medicine; Visit Provider Internal Medicine | DX: Z02.79 Encounter for issue of other medical certificate (principal) ==

== ENCOUNTER 2024-08-17 06:24 | Day surgery (SDC) | payer MEDICARE, OTHER, SELFPAY ==
--- NOTE | 2024-08-14 08:49 | HO.ANESPROP2 ---
Documented by User: Jayde Unger NP 08/14/24 09:05 HPI - Anesthesia Eval Consult details Narrative: 69yo M for Upper Endoscopy CAD s/p [place] with stent 2018. Follows [facility]. Not seen since 01/2023, scheduled in 09/2024. T/C to patient:No CP/SOB with minimal activity. Anesthesia Pre-Procedure Meds Is the patient on any of the following meds?: GLP1/DPP4 and SGLT2 Inhib PMFSH Past Medical History Medical History CAD (coronary artery disease) COVID-19 vaccine series completed Diabetes Elevated cholesterol GERD (gastroesophageal reflux disease) Hiatal hernia HTN (hypertension) Myocardial infarction GAUTAM on CPAP RLS (restless legs syndrome) Family History Family history of problems with anesthesia: No Surgical History Surgical History History of esophagogastroduodenoscopy (EGD) History of penile implant Hx of colonoscopy Hx of inguinal herniorrhaphy History of Problems with Anesthesia: No Social History Social History Patient Tobacco Use Status: Former Tobacco user Tobacco use type: Cigarette Use of substances other than those prescribed or required for medical reasons: No Are you DNR?: No Advance Directives: No Advance Directives Information Provided: Yes Recently lost weight without trying: No Nutrition Risks: No Nutritional Risk Poor oral hygiene: No Meds Allergies Allergy/AdvReac Type Severity Reaction Status Date / Time No Known Allergies Allergy Verified 03/23/21 09:50 Home Medications ?Medication ?Instructions ?Recorded ?Confirmed ?Last Taken ?Type aspirin 81 mg tablet,delayed 81 mg PO DAILY 03/23/21 03/23/21 08/12/24 History release atorvastatin 80 mg tablet 1 tab PO DAILY 03/23/21 03/23/21 Unknown History empagliflozin 25 mg tablet 1 tab PO DAILY 03/23/21 03/23/21 08/13/24 History (Jardiance) lisinopril 5 mg tablet 1 tab PO DAILY 03/23/21 03/23/21 08/29/22 History metformin 500 mg tablet 2 tab PO BID 03/23/21 03/23/21 Unknown History metoprolol succinate 50 mg 1 tab PO DAILY 03/23/21 03/23/21 Unknown History tablet,extended release 24 hr omeprazole 40 mg capsule,delayed 1 cap PO DAILY 03/23/21 03/23/21 Unknown History release ropinirole 1 mg tablet 1 tab PO BEDTIME 03/23/21 03/23/21 Unknown History sitagliptin phosphate 100 mg 1 tab PO DAILY 03/23/21 03/23/21 08/13/24 History tablet (Januvia) Exam Pertinent Lab Results Pertinent Lab Results: Laboratory Tests 02/18/24 09:15 WBC 6.1 Hgb 15.2 Hct 45.9 Plt Count 189 Sodium 141 Potassium 4.7 Chloride 107 Carbon Dioxide 24 BUN 15 Creatinine 1.01 Narrative Narrative: EKG 2022 NSR @ 72 LAD Assessment and Plan Assessment Anesthesia Assessment: Chart Reviewed Final Anesthetic Review Family History of Problems with Anesthesia: No History of Problems with Anesthesia: No Documented by User: Manjula Martinez MD 08/17/24 07:18 [facility] Past Medical History Medical History CAD (coronary artery disease) COVID-19 vaccine series completed Diabetes Elevated cholesterol GERD (gastroesophageal reflux disease) Hiatal hernia HTN (hypertension) Myocardial infarction GAUTAM on CPAP RLS (restless legs syndrome) Surgical History Surgical History History of esophagogastroduodenoscopy (EGD) History of penile implant Hx of colonoscopy Hx of inguinal herniorrhaphy Social History Social History Patient Tobacco Use Status: Former Tobacco user Tobacco use type: Cigarette Use of substances other than those prescribed or required for medical reasons: No Are you DNR?: No Advance Directives: No Advance Directives Information Provided: Yes Recently lost weight without trying: No Nutrition Risks: No Nutritional Risk Poor oral hygiene: No Meds Allergies Allergy/AdvReac Type Severity Reaction Status Date / Time No Known Allergies Allergy Verified 03/23/21 09:50 Home Medications ?Medication ?Instructions ?Recorded ?Confirmed ?Last Taken ?Type aspirin 81 mg tablet,delayed 81 mg PO DAILY 03/23/21 03/23/21 08/12/24 History release atorvastatin 80 mg tablet 1 tab PO DAILY 03/23/21 03/23/21 Unknown History empagliflozin 25 mg tablet 1 tab PO DAILY 03/23/21 03/23/21 08/13/24 History (Jardiance) lisinopril 5 mg tablet 1 tab PO DAILY 03/23/21 03/23/21 08/29/22 History metformin 500 mg tablet 2 tab PO BID 03/23/21 03/23/21 Unknown History metoprolol succinate 50 mg 1 tab PO DAILY 03/23/21 03/23/21 Unknown History tablet,extended release 24 hr omeprazole 40 mg capsule,delayed 1 cap PO DAILY 03/23/21 03/23/21 Unknown History release ropinirole 1 mg tablet 1 tab PO BEDTIME 03/23/21 03/23/21 Unknown History sitagliptin phosphate 100 mg 1 tab PO DAILY 03/23/21 03/23/21 08/13/24 History tablet (Januvia) Exam Airway Mallampati Class: III TM Dist: >3cm Neck ROM: Full Assessment and Plan Assessment Anesthesia Assessment: Anesthesia Plan Discussed Final Anesthetic Review NPO: Yes ASA Class: III Final Preanesthetic Review: No Changes in Pt Med Stat, Meds/Allgs Chart Reviewed, Consent Obtained/Reviewed and Anes Risks/Benef Reviewed Patient Risk: Intermediate Procedure Risk: Low Anesthetic Plan Anesthetic Plan: TIVA Disposition: Standard PACU
[2024-08-17 06:42] VITALS: BMI 36.4
[2024-08-17 06:45] VITALS: BP 167/89; PULSE 94; RESP 16; TEMP 36.5; O2SAT 94
[2024-08-17 07:01] LABS: Glucose, Whole Blood 186 mg/dL (60-115)
[2024-08-17] MEDS: Lactated Ringers 1,000 ML 100 ML IVCONT (07:04)
--- NOTE | 2024-08-17 08:14 | P.BOP_ITS ---
Brief Operative Note Date of Service: 08/17/24 Pre-op diagnosis: Bedoya's Post-op diagnosis: other (Bedoya's, Hiatal hernia, Gastric polyps) Procedure: EGD with biopsies Surgeon: Marciano Rodríguez MD Anesthesia: MAC Was an Catalogue Compiler used for this Procedure?: No Estimated blood loss (mL): 2.0 Pathology: other (A. EG Junction at 35cm) Condition: stable Disposition: PACU
[2024-08-17 08:22] VITALS: BP 159/79; PULSE 101; RESP 16; TEMP 36.1; O2SAT 92
--- NOTE | 2024-08-17 08:35 | OP_ITS ---
DATE OF SERVICE: 08/17/2024 SURGEON: Marciano Rodríguez MD INDICATIONS: The patient presents for evaluation of gastroesophageal reflux and Bedoya esophagus. Full consent was obtained from him for this, including risks of bleeding and perforation. PREOPERATIVE DIAGNOSIS: POSTOPERATIVE DIAGNOSIS: PROCEDURE PERFORMED: Esophagogastroduodenoscopy with biopsies. ESTIMATED BLOOD LOSS: COMPLICATIONS: ANESTHESIA: Monitored anesthesia care. ASSISTANTS: SPECIMENS: PREOPERATIVE DIAGNOSES: Gastroesophageal reflux and Bedoya's esophagus. POSTOPERATIVE DIAGNOSES: Gastroesophageal reflux and Bedoya's esophagus, hiatal hernia, hyperplastic gastric polyps. DESCRIPTION OF PROCEDURE: The patient was placed in the left lateral decubitus position. The Olympus video gastroscope was passed into the posterior oropharynx and upper esophagus under direct vision. The scope was passed slowly to the distal esophagus. The gastroesophageal junction appeared at 35 cm. This area was notable for some irregularity and less than 1 cm areas of probable Bedoya's mucosa. There was no evidence of any esophagitis nor any lesions. The scope entered into the stomach, there was a moderate-sized hiatal hernia. The scope was advanced to pylorus and the duodenum was cannulated to the descending portion. The duodenum including the bulb appeared normal without mass or ulceration. The scope was withdrawn back to the stomach. The gastric antrum and body appeared normal with good peristalsis. The scope was retroflexed visualizing the proximal stomach carefully, which appeared normal, without mass or ulceration, other than the above-mentioned hyperplastic appearing gastric polyps, which were not biopsied. There was no evidence of any retained food. The scope was straightened and withdrawn back to the esophagus. Multiple biopsies were obtained at the EG junction at 35 cm from the areas of presumed Bedoya's mucosa. Proximal to this, esophageal mucosa appeared normal. Scope was withdrawn from the patient. He tolerated the procedure well and was returned to recovery area in stable condition. IMPRESSION: 1. Gastroesophageal reflux, history of Bedoya's esophagus, hiatal hernia. 2. Gastric polyps. PLAN: The results of biopsies will be checked. If there is no dysplasia, I would recommend a repeat upper endoscopy in 3 years when he has his next screening colonoscopy in 2026. A specimen has been sent for Cypher study. He was advised to continue his daily omeprazole. He was advised to resume his aspirin tomorrow. MD FRANCES Madrigal/GLENYS / [phone]
[2024-08-17 08:37] VITALS: BP 110/84; PULSE 96; RESP 16; TEMP 36.1; O2SAT 92
[2024-08-17 08:52] VITALS: BP 128/75; PULSE 90; RESP 14; TEMP 36.1; O2SAT 93
== END 2024-08-17 09:12 | disposition home or self-care (01) ==
PROVIDERS: PCP Internal Medicine; Visit Provider Internal Medicine
PROC: 0DJ08ZZ Inspection of Upper Intestinal Tract, Via Natural or Artificial Opening Endoscopic (ICD-10-PCS; CPT 43235; principal; 2024-08-17 07:30)
DX: K22.70 Barrett's esophagus without dysplasia (principal); K21.9 Gastro-esophageal reflux disease without esophagitis; K31.7 Polyp of stomach and duodenum; K44.9 Diaphragmatic hernia without obstruction or gangrene; I10 Essential (primary) hypertension; E78.5 Hyperlipidemia, unspecified; E11.9 Type 2 diabetes mellitus without complications; I25.10 Atherosclerotic heart disease of native coronary artery without angina pectoris; Z95.5 Presence of coronary angioplasty implant and graft; I25.2 Old myocardial infarction; G47.33 Obstructive sleep apnea (adult) (pediatric); Z79.84 Long term (current) use of oral hypoglycemic drugs; Z79.82 Long term (current) use of aspirin; Z79.899 Other long term (current) drug therapy; Z99.89 Dependence on other enabling machines and devices; Z98.890 Other specified postprocedural states; Z87.891 Personal history of nicotine dependence
CPT/HCPCS: 43239; 82947; 88305; J1100; J1596; J2003; J2250; J2704

== ENCOUNTER 2024-08-28 08:58 | Outpatient (REF) | payer MEDICARE, OTHER, SELFPAY ==
[2024-08-28 10:45] LABS: Estimated Average Glucose 148 mg/dL; Hemoglobin A1c % 6.8 % (<6.0); Total Hemoglobin (HGBA1C) 3573.0508 umol/L
[2024-08-28 11:16] LABS: Alanine Aminotransferase 22 U/L (0-40); Albumin Level 4.1 g/dL (3.5-5.0); Alkaline Phosphatase 90 U/L (39-117); Aspartate Amino Transferase 32 U/L (5-37); Bilirubin Direct 0.3 mg/dL (0.0-0.5); Bilirubin Total 0.9 mg/dL (0.0-1.0); Cholesterol 122 mg/dL (<200); Glucose Fasting 116 mg/dL (60-99); HDL Cholesterol 32 mg/dL (>40); LDL Cholesterol Calculated 27 mg/dL (<100); Total Protein 6.8 g/dL (6.5-8.0); Triglycerides 317 mg/dL (<150)
[2024-08-28 11:44] LABS: Reflex LDLD? No
== END 2024-08-28 08:59 | disposition home or self-care (01) ==
LOC: HO.LAB 08:58
PROVIDERS: PCP Internal Medicine; Visit Provider Internal Medicine
DX: E78.1 Pure hyperglyceridemia (principal); I25.2 Old myocardial infarction; E11.40 Type 2 diabetes mellitus with diabetic neuropathy, unspecified
CPT/HCPCS: 36415; 80061; 80076; 82947; 83036

== ENCOUNTER → 2024-11-24 08:06 | Outpatient (BNVA) | payer SELFPAY | PROVIDERS: PCP Internal Medicine; Visit Provider Registered Nurse | DX: Z02.79 Encounter for issue of other medical certificate (principal) ==

== ENCOUNTER 2025-02-23 07:30 | Outpatient (REF) | payer MEDICARE, SELFPAY ==
[2025-02-23 12:01] LABS: MANUAL DIFF FLAG NO
[2025-02-23 12:17] LABS: Basophils Absolute Auto 0.1 X10*3/uL (0.0-0.2); Basophils Percent Auto 0.7 % (0-2); Eosinophils Absolute Auto 0.3 X10*3/uL (0.0-0.4); Eosinophils Percent Auto 4.8 % (0-4); Hematocrit 46.6 % (42.0-52.0); Hemoglobin 15.7 g/dl (14.0-18.0); Imm Gran Abs Auto 0.03 X10*3/uL (0.00-0.03); Imm Gran Pct Auto 0.4 % (0.0-0.4); Lymphocytes Absolute Auto 1.7 X10*3/uL (1.2-4.9); Lymphocytes Percent Auto 23.9 % (20-40); Mean Corpuscular HGB Conc 33.7 g/dl (31.0-36.0); Mean Corpuscular Hemoglobin 30.8 pg (27.0-33.0); Mean Corpuscular Volume 91.6 fL (80.0-98.0); Mean Platelet Volume 10.4 fL (9.4-12.4); Monocytes Absolute Auto 0.8 X10*3/uL (0.1-1.2); Monocytes Percent Auto 10.9 % (2-11); Neutrophils Absolute Auto 4.2 x10*3/uL (2.0-8.3); Neutrophils Percent Auto 59.3 % (45-73); Platelet Count 180 X10*3/uL (160-400); Red Blood Count 5.09 X10*6/uL (4.60-5.80); Red Cell Distribution Width 14.6 % (11.0-16.0); White Blood Count 7.1 X10*3/uL (4.8-10.8)
[2025-02-23 12:19] LABS: Appearance Urine Clear; Color Urine Yellow; Glucose Urine UA >=1000 mg/dL (Negative); Leukocyte Esterase Urine Negative (Negative); Nitrite Urine Negative (Negative); PH 5.5 (5.0-9.0); Specific Gravity - Urine >= 1.030 (1.005-1.025); UMIC TRIGGER UACC YES; Urine Blood Negative (Negative); Urine Ketones Negative (Negative); Urine Protein Negative (Neg-Trace)
[2025-02-23 12:23] LABS: Bacteria Urine None Seen (None Seen); Hyaline Casts Urine 0-2 /LPF (0-2); RBC Urine 0-2 /HPF (0-2); Squamous Epithelial Cell Urine 0-2 /HPF (0-2); WBC Urine 0-5 /HPF (0-5)
[2025-02-23 12:28] LABS: Estimated Average Glucose 166 mg/dL; Hemoglobin A1C 229.5407 umol/L; Hemoglobin A1c % 7.4 % (<6.0); Total Hemoglobin (HGBA1C) 3971.4511 umol/L
[2025-02-23 12:42] LABS: Alanine Aminotransferase 31 U/L (0-40); Albumin Level 4.5 g/dL (3.5-5.0); Alkaline Phosphatase 84 U/L (39-117); Anion Gap 13 (12-20); Aspartate Amino Transferase 33 U/L (5-37); Blood Urea Nitrogen 17 mg/dL (9-16); Calcium 9.7 mg/dL (8.4-10.2); Carbon Dioxide 25 mmol/L (22-29); Chloride 105 mmol/L (96-108); Cholesterol 154 mg/dL (<200); Estimated Glomerular Filt Rate > 60; Glucose Fasting 141 mg/dL (60-99); HDL Cholesterol 29 mg/dL (>40); Potassium 4.3 mmol/L (3.3-5.1); Sodium 139 mmol/L (135-145); Total Protein 7.3 g/dL (6.5-8.0); Triglycerides 851 mg/dL (<150)
[2025-02-23 12:46] LABS: Creatinine Urine 77.06 mg/dL; Microalbum/Creatinine Ratio Ur 19.4 ug/mg cr (<30)
[2025-02-23 12:52] LABS: PSA,Total (Free>4and<10) 1.32 ng/mL (0.00-4.00)
--- OUTSIDE RECORDS SUMMARY | 2025-02-23 13:05 | XMS_ITS ---
Author Organization [facility] Address [address] [place] [phone] Care Team Providers Care Blade Aligner Name Role Phone Claritza JAUREGUI, Rashad Primary Care Provider Marciano Jacob [phone] REASON FOR VISIT Bedoya's esophagus Encounters Encounter Location Date Provider Diagnosis [facility] [address] [place] [phone] 10/26/2024 Marciano Rodríguez Plan Of Treatment No Information Progress Notes * CURTIS CORTEZ MDOB:1954 (69 yo M)Acc No.[id number]:10/26/2024 EGD/MAC Patient:?DANACURTIS Provider:?Marciano Rodríguez MD :1955???Age:69 Y???Sex:Male Alexys e:10/26/2024 [facility] Pcp:Rashad Jerry MD Subjective: * Chief Complaints: * ???1. Bedoya's esophagus. * Medical History:? Objective: * Vitals:? Assessment: Plan: * Treatment: * * The named appointment provid er may or may not be the originator of this progress note, and it is not deemed complete until electronically signed by the appointment provider. Sign off status: Pending * Provider:?Marciano Rodríguez MD Date:? 025 Generated for Aleks medina/Ted/eTransmitting on:?02/23/2025 01:05 PM EDT
--- OUTSIDE RECORDS SUMMARY | 2025-02-23 13:05 | XMS_ITS ---
Author Organization [facility] Address [address] [place] [address] Care Team Providers Care Mica Washer Gluer Name Role Phone Claritza JAUREGUI, Rashad Primary Care Provider Marciano Jacob Unavailable [phone] REASON FOR VISIT Bedoya's esophagus Problems Problem Type SNOMED Code ICD Code Onset Dates Problem Status W/U Status Risk Notes Problem Bedoya''s esophagus without dysplasia (K22.70) Active confirmed Problem Gastro-esophagea l reflux disease without esophagitis (604585663) Gastro-esophage al reflux disease without esophagitis (K21.9) Active confirmed Problem Gastric polyp (34024692) Gastric polyp (K31.7) Active confirmed Encounters Encounter Location Date Provider Diagnosis [facility] Outpatient [address] [place] [phone] 08/17/2024 Marciano Rodríguez Bedoya''s esophag us without dysplasia K22.70 ; Gastro-esophageal reflux disease without esophagitis K21.9 ; Hiatal hernia K44.9 and Gastric polyp K31.7 Assessments Encounter Date Diagnosis (ICD Code) Assessment Notes Treatment Notes Treatment Clinical Notes Section Notes 08/17/2024 Bedoya''s esophagus without dysplasia (ICD-10 - K22.70) 08/17/2024 Gastro-esophagea l reflux disease without esophagitis (ICD-10 - K21.9) 08/17/2024 Hiatal hernia (ICD-10 - K44.9) 08/17/2024 Gastric polyp (ICD-10 - K31.7) Plan Of Treatment No Information Progress Notes * CURTIS CORTEZ MDOB:09/28/ 1955 (69 yo M)Acc No.[id number]:08/17/2024 EGD/MAC Patient:?CURTIS CORTEZ Provider:?Marciano Rodríguez MD :1955???Age:69 Y???Sex:Male Alexys e:08/17/2024 Address:[address] [place] [address] Pcp:Rashad Jeryr MD Subjective: * Chief Complaints: * ???1. Bedoya's esophagus. * Medical History:? Objective: * Vitals:? Assessment: * Assessment: 1.?Bedoya''s esophagus with out dysplasia - K22.70 (Primary)???2.?Gastro- esophageal reflux disease without esophagitis - K21.9???3.?Hiatal hernia - K44.9???4.?Gastric polyp - K31.7??? Plan: * Treatment: * Procedure Codes:?78202 UPPER GI ENDOSCOPY, BIOPSY, 3126F ESOPH BX RPRT W/DYSPL INFO * * The named appointment provid er may or may not be the originator of this progress note, and it is not deemed complete until electronically signed by the appointment provider. Sign off status: Pending * Provider:?Marciano Rdoríguez MD Date:? 024 Generated for Aleks medina/Ted/eTransmitting on:?02/23/2025 01:05 PM EDT
--- OUTSIDE RECORDS SUMMARY | 2025-02-23 13:06 | XMS_ITS ---
Author Organization Rashad Jerry MD Address [address] [place], [place] [id number] Care Team Providers Care Regulatory Consultant Name Role Phone Rashad Jerry Primary Care Provider Allergies No Known Allergies REASON FOR VISIT Pre op Dr Kary Mccabe 6-19 right eye no labs no EKG Medications Medication SIG (Take, Route, Frequency, Duration) Notes Start Date End Date Status Jardiance 25 mg take 1 tablet daily Orally Once a day for 90 days Active Fe Tabs 325 (65 Fe) MG 1 tablet Orally O nce a day for 30 day(s) 12/16/2015 Not-Taking metFORMIN HCl 500 mg TAKE 2 TABLETS TWIC E A DAY WITH MEALS Active Ventolin HFA 108 (90 Base) MCG/ACT 2 puffs as needed Inhalation every 4 hrs for 30 days 08/27/2011 Not-Taking Flonase 50 MCG/ACT 2 sprays in each nostril Nasally Once a day for 30 day(s) 04/24/2012 Not-Taking Atorvastatin Calcium 80 MG 1 tablet Orally Once a day for 90 days Active FreeStyle Lite Test - USE TO TEST BLOOD SUGAR DAILY Active Januvia 100 mg take 1 tablet daily Orally Once a day for 90 days Active Albuterol Sulfate (2.5 MG/3ML) 0.083% three ml(s) every 6 hours as necessary for 14 days Inhalation Three times a day for 30 days Active rOPINIRole HCl 1 mg TAKE 1 TABLET DAILY Active Lisinopril 5 MG 1 tablet Orally Once a day for 30 day(s) Active FreeStyle Lancets - USE TO TEST BLOOD FRENCH GAR ONCE A DAY Active Metoprolol Succinate ER 50 MG 1 tablet Orally Once a day for 90 days 02/25/2024 Active Albuterol Sulfate HFA 108 (90 Base) MCG/ACT USE 1 INHALATION EVERY 4 HOURS NEEDED Active Omeprazole 40 mg TAKE 1 CAPSULE DAILY Orally Once a day for 90 days Active Aspir-81 81 MG 1 tablet Orally Once a day for 30 day(s) Active Fish Oil 1000 MG 1 capsule Orally Twi ce a day Active Problems Problem Type SNOMED Code ICD Code Onset Dates Problem Status W/U Status Risk Notes Problem [id number] Age-related cataract of both eyes, unspecified age-related cataract type (H25.9) Active confirmed Vital Signs Blood pressure systolic 108 mm Hg 02/13/20 25 Blood pressure diastolic 60 mm Hg 025 Height 67 in 02/12/2025 Weight 229 lbs 02/12/2025 BMI 35.86 kg/m2 02/12/2025 Encounters Encounter Location Date Provider Diagnosis Rashad Jerry MD [address] [place] [address] [address] [place], [place] [phone] 02/12/2025 Rashad Jerry Type 2 diabetes, controlled, 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 cleared for upcoming surgery Plan Of Treatment Treatment Notes Assessment Notes Type 2 diabetes, controlled, with neurop athy doing well Preop examination patient healthy. alexandra ared for upcoming surgery Next Appt Details Provider Name:Rashad mendezr, 03/02/2025 09:30:00 AM, [address], [address], [place], [phone], Progress Notes * Jagdish CORTEZ MDOB:1954 (69 yo M)Acc No.[id number]:02/12/2025 Patient:?Jagdish CORTEZ Beata Provider:?Rashad Jerry MD :1955???Age:69 Y???Sex:Male Alexys e:02/12/2025 [id number] Subjective: * Chief Complaints: * ???Pre op Dr Kary Mccabe 03-07 9 right eye no labs no EKG * HPI: ???Symptom(s):?patient is a 69 yo male here for preop clearance visit for upcoming cataract surgery scheduled 03/[address] Mccabe. * ROS:?General/Constitutional:?Denies?Chills.?Denies?Fatigue.?Denies?Fever.?Denies?Headache.?ENT:?Denies?Sore throat.?Respiratory:?Denies?Cough.?Denies?Shortness of breath at rest.?Denies?Shortness of breath with exertion.?Cardiovascular:?Patient denies?chest pain with exertion, chest pain at rest.?Gastrointestinal:?Denies?Diarrhea.?Denies?Nausea.? * Medical History:? * Surgical History:? * Hospitalization/Major Diagno stic Procedure:? * Medications:?TakingFish Oil 1000 MG Capsule Delayed Release 1 capsule Orally Twice a day Aspir-81 81 MG Tablet Delayed Release 1 tablet Orally Once a day Lisinopril 5 MG Tablet 1 tablet Orally Once a day FreeStyle Lancets - Miscellaneous USE TO TEST BLOOD SUGAR ONCE A DAY Albuterol Sulfate HFA 108 (90 Base) MCG/ACT Aerosol Solution USE 1 INHALATION EVERY 4 HOURS NEEDED Omeprazole 40 mg Capsule Delayed Release TAKE 1 CAPSULE DAILY Orally Once a day Metoprolol Succinate ER 50 MG Tablet Extended Release 24 Hour 1 tablet Orally Once a day Atorvastatin Calcium 80 MG Tablet 1 tablet Orally Once a day Albuterol Sulfate (2.5 MG/3ML) 0.083% Nebulization Solution three ml(s) every 6 hours as necessary for 14 days Inhalation Three times a day rOPINIRole HCl 1 mg Tablet TAKE 1 TABLET DAILY FreeStyle Lite Test - Strip USE TO TEST BLOOD SUGAR DAILY Januvia 100 mg Tablet take 1 tablet daily Orally Once a day metFORMIN HCl 500 mg Tablet TAKE 2 TABLETS TWICE A DAY WITH MEALS Jardiance 25 mg Tablet take 1 tablet daily Orally Once a day Taking Fish Oil 1000 MG Capsule Delayed Release 1 capsule Orally Twice a day Taking Aspir-81 81 MG Tablet Delayed Release 1 tablet Orally Once a day Taking Lisinopril 5 MG Tablet 1 tablet Orally Once a day Taking FreeStyle Lancets - Miscellaneous USE TO TEST BLOOD SUGAR ONCE A DAY Taking Albuterol Sulfate HFA 108 (90 Base) MCG/ACT Aerosol Solution USE 1 INHALATION EVERY 4 HOURS NEEDED Taking Omeprazole 40 mg Capsule Delayed Release TAKE 1 CAPSULE DAILY Orally Once a day Taking Metoprolol Succinate ER 50 MG Tablet Extended Release 24 Hour 1 tablet Orally Once a day Taking Atorvastatin Calcium 80 MG Tablet 1 tablet Orally Once a day Taking Albuterol Sulfate (2.5 MG/3ML) 0.083% Nebulization Solution three ml(s) every 6 hours as necessary for 14 days Inhalation Three times a day Taking rOPINIRole HCl 1 mg Tablet TAKE 1 TABLET DAILY Taking FreeStyle Lite Test - Strip USE TO TEST BLOOD SUGAR DAILY Taking Januvia 100 mg Tablet take 1 tablet daily Orally Once a day Taking metFORMIN HCl 500 mg Tablet TAKE 2 TABLETS TWICE A DAY WITH MEALS Taking Jardiance 25 mg Tablet take 1 tablet daily Orally Once a day Not-Taking/PRNFe Tabs 325 (65 Fe) MG Tablet Delayed Release 1 tablet Orally Once a day Ventolin HFA 108 (90 Base) MCG/ACT Aerosol Solution 2 puffs as needed Inhalation every 4 hrs Flonase 50 MCG/ACT Suspension 2 sprays in each nostril Nasally Once a day Medication List reviewed and reconciled with the patientNot-Taking/PRN Fe Tabs 325 (65 Fe) MG Tablet Delayed Release 1 tablet Orally Once a day Not-Taking/PRN Ventolin HFA 108 (90 Base) MCG/ACT Aerosol Solution 2 puffs as needed Inhalation every 4 hrs Not-Taking/PRN Flonase 50 MCG/ACT Suspension 2 sprays in each nostril Nasally Once a day Medication List reviewed and reconciled with the patient * Allergies:?N.K.D.A.yes[Aller gies Verified] Objective: * Vitals:?Ht: 67, Wt: 229, BMI :35.86, BP:108/60, Wt-k.87. * Examination: ???General Examination: ?GENERAL APPEARANCE:?alert, well hydrated, in no distress.?HEAD:?normocephalic.?EYES:?extraocular movement full and smooth.?EARS:?BOTH EARS, normal.?SKIN:?good turgor.?HEART:?regular rate and rhythm, no murmurs, rubs, gallops.?LUNGS:?no wheezes, rales, rhonchi, good air movement, clear to auscultation bilaterally.?ABDOMEN:?soft, nontender, nondistended, no rebound tenderness, no organomegaly.? Assessment: * Assessment: 1.?Type 2 diabetes, controll ed, with neuropathy - E11.40 (Primary)???2.?Age- related cataract of both eyes, unspecified age-related cataract type - H25.9???3.?Preop examination - Z01.818??? Plan: * Treatment: 2.?Preop examination? Notes: patient healthy. cleared for upcoming surgery?? * Procedure Codes:? * * Sign off status: Completed true * Provider:?Rashda Jerry MD Date:?0 02/12/2025 Generated for Josefai ng/Ted/eTransmitting on:?02/23/2025 01:06 PM EDT History and Physical Notes * HPI (History of Present Illness) Category Sub-Category Detail Notes Category Not es Symptom(s) patient is a 69 yo male here for preop clearance visit for upcoming cataract surgery scheduled 03/[address] Mccabe Examination Category Sub-Category Detail Notes Category Not es General Examination GENERAL APPEARANCE: alert, w ell hydrated, in no distress HEAD: normocephalic EYES: extraocular movement full and smooth EARS: BOTH EARS, normal HEART: regular rate and rhy thm, no murmurs, rubs, gallops LUNGS: no wheezes, rales, r honchi, good air movement, clear to auscultation bilaterally ABDOMEN: soft, nontender, non distended, no rebound tenderness, no organomegaly SKIN: good turgor
--- OUTSIDE RECORDS SUMMARY | 2025-02-23 13:06 | XMS_ITS | Encounter Summary ---
Author Organization [facility] Address [address] [place] [address] Care Team Providers Care Reimbursement Spec Name Role Phone Unavailable Primary Care Provider Unavailabl e Encounter Details Date Type Department Care Team (Late st Contact Info) Description 07/13/2016 Telephone [facility] [address] [facility] [address] [place] [address] Miladis Chand PA [address] [place] [id number] Social History Tobacco Use Types Packs/Day Years Used Date Smoking Tobacco: Never Assessed Sex and Gender Information Value Date Recorded Sex Assigned at Not on file Legal Sex Male 1:37 PM EDT Gender Identity Not on file Sexual Orientation Not on file documented as of this encounter Plan of Treatment Not on file documented as of this encounter Visit Diagnoses Not on filedocumented in this encounter
--- OUTSIDE RECORDS SUMMARY | 2025-02-23 13:06 | XMS_ITS | Patient Health Record ---
Author Organization Rashad Jerry MD Address [address] [place], [place] [id number] Care Team Providers Care Literacy Tutor Name Role Phone Rashad Jerry Primary Care Provider [phone] Allergies No Known Allergies Results Component Value Reference Range Notes Comprehensive [place]. Panel Fa st (Not yet reviewed by provider) Interpretation: Performing Lab:[facility], [address] [place] [phone] Notes/Report: Sodium 139 135-145 mmol/L Potassium 4.3 3.3-5.1 mmol/L Chloride 105 96-108 mmol/L Carbon Dioxide 25 22-29 mmol/L Anion Gap 13 12-20 Blood Urea Nitrogen 17 9-16 mg/dL Creatinine 1.12 0.5-1.4 mg/dL Estimated Glomerular Filt Rate > 60 Chronic Kidney Disease: Estimated GFR < 60 mL/min/1.73m2 Severe Kidney Disease: Estimated GFR < 15 mL/min/1.73m2 Glucose Fasting 141 60-99 mg/dL A fasting glucose of 126 mg/dl or greater on more than one occasion is considered diagnostic of diabetes. Calcium 9.7 8.4-10.2 mg/dL Bilirubin Total 1.0 0.0-1.0 mg/dL Aspartate Amino Transferase 33 5-37 U/L Alanine Aminotransferase 31 0-40 U/L Total Protein 7.3 6.5-8.0 g/dL Albumin Level 4.5 3.5-5.0 g/dL Alkaline Phosphatase 84 39-117 U/L Lipid Panel (Not yet reviewe d by provider) Interpretation: Performing Lab:[facility], [address] [place] [phone] Notes/Report: Triglycerides 851 <150 mg/dL Slight Lipemia. Desirable Triglyceride: less than 150 mg/dL Borderline High Triglyceride 150-199 mg/dL High Triglyceride: 200-499 mg/dL Very High Triglyceride: greater than or equal to 5OO mg/dL Cholesterol 154 <200 mg/dL Desirable Cholesterol: less than 200 mg/dL Borderline High Cholesterol: 200-239 mg/dL High Cholesterol: greater than 239 mg/dL LDL Cholesterol Calculated TNP <100 mg/dL Unable to calculate the LDL. The formula of Friedwald, Walker, and Rosa Isela is only valid if the triglycerides are less than 400 mg/dl. HDL Cholesterol 29 >40 mg/dL Desirable HDL: greater than 40 mg/dL Note: This HDL assay may give artificially low results in patients with liver disease. PSA,Total (Free>4and<10) (No t yet reviewed by provider) Interpretation: Performing Lab:[address] [phone] Notes/Report: PSA,Total (Free>4and<10) 1.32 0.00-4.00 ng/mL A Free PSA was not performed: The percentage of Free PSA can be used to enhance the differentiation of prostate cancer from benign prostatic disease in subjects whose PSA levels are between 4.0 and 10.0 ng/mL. For subjects whose PSA levels are below 4.0 or above 10.0 ng/mL, the risk of prostate cancer is determined on the basis of the PSA alone. Therefore the % Free PSA is recommended only for those subjects whose PSA levels are between 4.0 and 10.0 ng/mL. PSA methodology: Orozco Alinity i Chemiluminescent Microparticle Immunoassay (CMIA) Microalbumin, Random (Not ye t reviewed by provider) Interpretation: Performing Lab:[address] [phone] Notes/Report: Creatinine Urine 77.06 Microalbumin Urine 15.0 Microalbum/Creatinine Ratio Ur 19.4 <30 ug/mg cr Albumin/Creatinine Ratio Reference Ranges: Normal: < 30 ug/mg creatinine Microalbuminuria: 30 - 300 ug/mg creatinine Clinical Albuminuria: > 300 ug/mg creatinine Complete Blood Count Auto Di ff Reviewed date:02/23/2025 12:32:26 PM Interpretation: Performing Lab:[facility], [address] [place] [phone] Notes/Report: White Blood Count 7.1 4.8-10.8 X10*3/uL Red Blood Count 5.09 4.60-5.80 X10*6/uL Hemoglobin 15.7 14.0-18.0 g/dl Hematocrit 46.6 42.0-52.0 % Mean Corpuscular Volume 91.6 80.0-98.0 fL Mean Corpuscular Hemoglobin 30.8 27.0-33.0 pg Mean Corpuscular HGB Conc 33.7 31.0-36.0 g/dl Red Cell Distribution Width 14.6 11.0-16.0 % Platelet Count 180 160-400 X10*3/uL Mean Platelet Volume 10.4 9.4-12.4 fL Neutrophils Percent Auto 59.3 45-73 % Imm Gran Pct Auto 0.4 0.0-0.4 % Lymphocytes Percent Auto 23.9 20-40 % Monocytes Percent Auto 10.9 2-11 % Eosinophils Percent Auto 4.8 0-4 % Basophils Percent Auto 0.7 0-2 % NRBC Pct Auto 0.0 0.0-0.2 /100WBC Neutrophils Absolute Auto 4.2 2.0-8.3 x10*3/u L Imm Gran Abs Auto 0.03 0.00-0.03 X10*3/uL Lymphocytes Absolute Auto 1.7 1.2-4.9 X10*3/u L Monocytes Absolute Auto 0.8 0.1-1.2 X10*3/uL Eosinophils Absolute Auto 0.3 0.0-0.4 X10*3/u L Basophils Absolute Auto 0.1 0.0-0.2 X10*3/uL NRBC Abs Auto 0.000 0.0-0.012 X10*3/uL Hemoglobin A1c Reviewed date:02/23/2025 12:32:04 PM Interpretation: Performing Lab:[facility], [address] [place] [phone] Notes/Report: Hemoglobin A1c % 7.4 <6.0 % Hemoglobin A1C Reference Range Adults: 4.8 - 6.0 % Non diabetic: < 6.0 % Goal: < 7.0 % Additional Action Suggested: > 8.0 % Note: Hemoglobin A1c results are invalid for patients with abnormal amounts of HbF. Blood transfusions may impact the HbA1c concentration in the patient sample. Estimated Average Glucose 166 eAG = Estimated average glucose which is %A1C expressed as average glucose, using the formula of the I2Y-Vbnesul Average Glucose study (ADAG), Diabetes Care, Vol.31,#8, May. 2007 UA ClnCatch+Micro w/rflx Cul t Reviewed date:02/23/2025 12:35:45 PM Interpretation: Performing Lab:[facility], [address] [place] [phone] Notes/Report: Urine, Clean Catch Color Urine Yellow Appearance Urine Clear PH 5.5 5.0-9.0 Glucose Urine UA >=1000 Negative mg/dL Urine Blood Negative Negative Specific [place] - Urine >= 1.030 1.005-1.025 Urine Protein Negative Neg-Trace mg/dL Urine Ketones Negative Negative mg/dL Nitrite Urine Negative Negative Leukocyte Esterase Urine Negative Negative RBC Urine 0-2 0-2 /HPF WBC Urine 0-5 0-5 /HPF Squamous Epithelial Cell Urine 0-2 0-2 /HPF Bacteria Urine None Seen None Seen Hyaline Casts Urine 0-2 0-2 /LPF Occult Blood, Stool, Guaiac Reviewed date:02/25/2024 10:20:11 AM Interpretation:Negative Performing Lab: Notes/Report: Negative Hemoglobin A1c Reviewed date:02/25/2024 03:21:37 PM Interpretation: Performing Lab:[facility], [address] [place] [phone] Notes/Report: Hemoglobin A1c % 6.9 <6.0 % Hemoglobin A1C Reference Range Adults: 4.8 - 6.0 % Non diabetic: < 6.0 % Goal: < 7.0 % Additional Action Suggested: > 8.0 % Note: Hemoglobin A1c results are invalid for patients with abnormal amounts of HbF. Blood transfusions may impact the HbA1c concentration in the patient sample. Estimated Average Glucose 151 eAG = Estimated average glucose which is %A1C expressed as average glucose, using the formula of the J4U-Yheutvs Average Glucose study (ADAG), Diabetes Care, Vol.31,#8, May. 2007 LDL Cholesterol Direct Reviewed date:02/27/2024 12:42:06 PM Interpretation: Performing Lab:[facility], [address] [place] [phone] Notes/Report: LDL Cholesterol Direct 53 <100 mg/dL Greatly elevated Triglycerides values (>1200 mg/dL) interfere with the dLDL assay. Desirable range <100 mg/dL for primary prevention; <70 mg/dL for patients with CHD or diabetic patients with > or = 2 CHD risk factors. THIS TEST WAS PERFORMED AT: [facility] [address] [place] [phone] MD Valdez GALLARDO Reviewed date:02/25/2024 12:36:00 PM Interpretation: Performing Lab:[facility], [address] [place] [phone] Notes/Report: Valdez Smiley See Note Specimen held untested for 24 hours; Call to request Chemistry testing. Glucose, Whole Blood Reviewed date:08/17/2024 07:02:34 PM Interpretation: Performing Lab:[facility], [address] [place] [phone] Notes/Report: Glucose, Whole Blood 186 60-115 mg/dL METER # : [id number] Pathology Reviewed date:09/07/2024 01:13:00 PM Interpretation: Performing Lab:[facility], [address] [place] [phone] Notes/Report: - -------- Name: Venu Ramirez Age/Sex: 69/M : 1955 Unit#: [id number] Attend Dr: Marciano Rodríguez MD Re08/17/24 Status : [facility] Location: [facility] Disch: - -------- SPEC : [id number] RECD : 08/17/24 STATUS: ARLYN LOFTON NUM: [id number] ALEX: 08/17/[address] [facility] [facility] [address]: Marciano Rodríguez MD ENTERED: 08/17/24 SP TYPE: Surgical OTHR DR: Rashad Jerry MD ORDERED: HE Stain/3, Gross Micro L4, Eso bx BA w/exc COMMENTS: 8 unstaine d slides sent to [facility] for TissueCypher on 08/20/24. Addendum Addendum 1 Entered: 09/07/24 TissueCypher: Risk class Low; risk score 3.2 See report in its entirety in the EMR - Reports/Pathology section as a scanned report (camera icon). If appropriate, a copy has also been sent to the ordering provider's office. Addendum Signed (signature on file) Jamir Crystal MD 09/07/24 114 - -------- Diagnosis Eg junction, 35 cm, biopsy: - Bedoya esophagus with background moderate chronic, focally active, inflammation. - No dysplasia seen. - Squamous mucosa within normal limits. - Multiple additiona l levels examined. Comment: TissueCyphe r results will be addended. 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 Material Received EG junction at 35 cm , h/o Bedoya's and reflux CONTINUED ON NEXT PAGE - -------- Name: Venu Ramirez Age/Sex: 69/M : 1955 Unit#: [id number] Attend Dr: Marciano Rodríguez MD Re08/17/24 Status : [facility] Location: [facility] Disch: - -------- SPEC : [id number] RECD : 08/17/24 STATUS: ARLYN LOFTON NUM: [id number] ALEX: 08/17/[address] [facility] [address]: Marciano Rodríguez MD ENTERED: 08/17/24 SP TYPE: Surgical OTHR DR: Rashad Jerry MD ORDERED: HE Stain/3, Gross Micro L4, Eso bx BA w/exc COMMENTS: 8 unstaine d slides sent to [facility] for TissueCypher on 08/20/24. Gross Description Received in formalin labeled ?EG junction at 35, history Bedoya's and reflux? are 5 clifford- white and clifford-pink irregular tissue fragments ranging from 0.15-0.25 cm, submitted in toto in a cassette deny [facility] CEDS This case was reviewed intradepartmentally. Copies To: Rashad Jerry MD [facility] [address] [place] [address] Marciano Rodríguez MD [facility] [address] [place] [address] - -------- Signed (signature on file) Jamir Crystal MD 08/19/24 1552 - -------- END OF REPORT Reason For Referral No Information Medications Medication SIG (Take, Route, Frequency, Duration) Notes Start Date End Date Status Lisinopril 5 MG 1 tablet Orally Once a day for 30 day(s) Active Jardiance 25 mg take 1 tablet daily Orally Once a day for 90 days Active FreeStyle Lancets - USE TO TEST BLOOD FRENCH GAR ONCE A DAY Active Fe Tabs 325 (65 Fe) MG 1 tablet Orally O nce a day for 30 day(s) 12/16/2015 Not-Taking metFORMIN HCl 500 mg TAKE 2 TABLETS TWIC E A DAY WITH MEALS Active Metoprolol Succinate ER 50 MG 1 tablet Orally Once a day for 90 days 02/25/2024 Active Atorvastatin Calcium 80 MG 1 tablet Orally Once a day for 90 days Active Albuterol Sulfate HFA 108 (90 Base) MCG/ACT USE 1 INHALATION EVERY 4 HOURS NEEDED Active Ventolin HFA 108 (90 Base) MCG/ACT 2 puffs as needed Inhalation every 4 hrs for 30 days 08/27/2011 Not-Taking Omeprazole 40 mg TAKE 1 CAPSULE DAILY Orally Once a day for 90 days Active Flonase 50 MCG/ACT 2 sprays in each nostril Nasally Once a day for 30 day(s) 04/24/2012 Not-Taking FreeStyle Lite Test - USE TO TEST BLOOD SUGAR DAILY Active Fish Oil 1000 MG 1 capsule Orally Twi ce a day Active Januvia 100 mg take 1 tablet daily Orally Once a day for 90 days Active Albuterol Sulfate (2.5 MG/3ML) 0.083% three ml(s) every 6 hours as necessary for 14 days Inhalation Three times a day for 30 days Active rOPINIRole HCl 1 mg TAKE 1 TABLET DAILY Active Aspir-81 81 MG 1 tablet Orally Once a day for 30 day(s) Active Immunizations Vaccine Route Administration Date Status Comme nts Flu Vaccine Unknown 07/21/2012 Administered Flu Vaccine IM Intramuscular 08/15/2013 Administered [facility] Shingles IM Intramuscular 12/07/2013 Administered Flu Vaccine IM Intramuscular 06/25/2014 Administered [facility] Fluarix Quadrivalent IM Intramuscular 08/01/2015 Administered PPSV23 (Pnemovax) IM Intramuscular 08/09/2015 Administered Fluarix Quadrivalent IM Intramuscular 06/19/2016 Administered Fluarix Quadrivalent IM Intramuscular 09/24/2017 Administered Prevnar 13 IM Intramuscular 10/14/2017 Administered [facility] TDaP IM Intramuscular 04/03/2018 Administered pt was given the vaccine at [facility] in [place]. Shingrix IM Intramuscular 04/03/2018 Administered pt was given the vaccine at [facility] in [place]. Fluarix Quadrivalent IM Intramuscular 06/16/2018 Administered [facility] Shingrix IM Intramuscular 06/16/2018 Administered Pt was given the vaccine at [facility] in [place]. Fluarix Quadrivalent IM Intramuscular 06/15/2019 Administered PPSV23 (Pnemovax) IM Intramuscular 11/09/2019 Administered Influenza High Dose IM Intramuscular 06/09/2020 Administer ed Covid Vaccine Unknown 12/19/2020 Administered Pfizer Covid Vaccine Unknown 01/09/2021 Administered Pfizer SARS-COV-2 Pfizer Unknown 07/12/2021 Administered Influenza High Dose Unknown 07/12/2021 Administered Influenza High Dose IM Intramuscular 08/23/2022 Administer ed Influenza High Dose IM Intramuscular 07/09/2023 Administer ed Fluarix Quadrivalent Unknown 07/22/2015 Refused Social History Tobacco Use: Social History Observation Description Date Details (start date - stop date) Former Smoker NA - NA Tobacco Use/Smoking Question Answer Notes Patient is a former smoker How long has it been since y ou last smoked? > 10 years Additional Findings: Tobacco Non-User Fo rmer smoker, currently using no form of tobacco Alcohol Screen Question Answer Notes Did you have a drink contain ing alcohol in the past year? Yes How often did you have a dri nk containing alcohol in the past year? Monthly or less (1 point) How many drinks did you have on a typical day when you were drinking in the past year? 1 or 2 drinks (0 point) How often did you have 6 or more drinks on one occasion in the past year? Never (0 point) Points 1 Interpretation Negative Problems Problem Type SNOMED Code ICD Code Onset Dates Problem Status W/U Status Risk Notes Problem 02550508 Restless leg syn drome (G25.81) Active confirmed Problem 459437465 Reflux esophagit is (K21.00) Active confirmed Problem 865399122 Acute bronchitis , unspecified (J20.9) Active confirmed Problem 448204030481225 Erectile dysfunc tion due to arterial insufficiency (N52.01) Active confirmed Problem Type 2 diabetes mellitus without complication (E11.9) Active confirmed Problem 338735842 Pure hypertriglyceridemia (E78.1) Active confirmed Problem 19383017 Type 2 diabetes, controlled, with neuropathy (E11.40) Active confirmed Problem 756751509 Cervical disc di sease (M50.90) Active confirmed Problem 950896351 Barretts esophag us without dysplasia (K22.70) Active confirmed Problem 544334692 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) Active confirmed Problem 82303354 Sleep apnea, unspecified type (G47.30) Active confirmed Problem 088309670 Rising PSA level (R97.20) Active confirmed Problem 797512764 Benign prostatic hyperplasia with lower urinary tract symptoms (N40.1) Active confirmed Problem 33526299782147 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) artery (Z95.5) Active confirmed Problem 91554075 Major depressive disorder with single episode, 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) Active confirmed Problem 71983545 Hepatosplenomega ly (R16.2) Active confirmed Problem 66793591 Parotitis (K11.20) Active confirmed Problem 343874403 Acute asthmatic bronchitis (J45.909) Active confirmed Problem 89915414 Age-related jonathan ract of both eyes, unspecified age-related cataract type (H25.9) Active confirmed Vital Signs Blood pressure diastolic 60 mm Hg 02/12/2025 Height 67 in 02/12/2025 Blood pressure systolic 108 mm Hg 02/12/2025 Weight 229 lbs 02/12/2025 BMI 35.86 kg/m2 02/12/2025 Encounters Encounter Location Date Provider Diagnosis Rashad Jerry MD [address] [place] [id number] 02/23/2025 Rashad Jerry Blood tests for rout ine general physical examination Z00.00 ; Pure hypertriglyceridemia E78.1 ; Type 2 diabetes, controlled, with neuropathy E11.40 and Rising PSA level R97.20 Rashad Jerry MD [address] [place] [id number] 02/25/2024 Rashad Jerry History of myocardia l infarction I25.2 ; Type 2 diabetes, controlled, with neuropathy E11.40 ; Reflux esophagitis K21.00 ; Rising PSA level R97.20 ; Pure hypertriglyceridemia E78.1 ; Colon cancer screening Z12.11 ; Depression screening Z13.31 ; Restless leg syndrome G25.81 and Skin lesion of face L98.9 Rashad Jerry MD [address] [place] [id number] 08/31/2024 Rashad Jerry Acute bronchitis, unspecified J20.9 ; Barretts esophagus without dysplasia K22.70 and Type 2 diabetes mellitus without complication E11.9 Rashad Jerry MD [address] [place] [id number] 02/12/2025 Rashad Jerry Type 2 diabetes, controlled, with neuropathy E11.40 ; Age-related cataract of both eyes, unspecified age-related cataract type H25.9 and Preop examination Z01.818 Rashad Jerry MD [address] [place] [id number] 08/14/2024 Rashad Jerry Acute bronchitis, unspecified J20.9 Rashad Jerry MD [address] [place] [id number] 01/21/2025 Rashad Jerry Type 2 diabetes, controlled, with neuropathy E11.40 Rashad Jerry MD [address] [place] [id number] 01/26/2025 Rashad Jerry MD [address] [place] [id number] 01/29/2025 Rashad Jerry Type 2 diabetes, controlled, with neuropathy E11.40 Assessments Encounter Date Diagnosis (ICD Code) Assessment Notes Treatment Notes Treatment Clinical Notes Section Notes 02/23/[address] tests [address] ine general physical examination (ICD-10 - Z00.00) 02/25/2024 History of myocardia l infarction (ICD-10 - I25.2) 02/25/2024 Type 2 diabetes, controlled, with neuropathy (ICD-10 - E11.40) 08/31/2024 Acute bronchitis, unspecified (ICD-10 - J20.9) 08/31/2024 Barretts esophagus without dysplasia (ICD-10 - K22.70) no dysplasia 02/12/2025 Type 2 diabetes, controlled, with neuropathy (ICD-10 - E11.40) doing well 02/12/2025 Age-related cataract of both eyes, unspecified age-related cataract type (ICD-10 - H25.9) 08/14/2024 Acute bronchitis, unspecified (ICD-10 - J20.9) 01/21/2025 Type 2 diabetes, controlled, with neuropathy (ICD-10 - E11.40) 01/29/2025 Type 2 diabetes, controlled, with neuropathy (ICD-10 - E11.40) 02/23/2025 Pure hypertriglyceridemia (ICD-10 - E78.1) 02/25/2024 Reflux esophagitis (ICD-10 - K21.00) stable, will continue current regiment 08/31/2024 Type 2 diabetes weston itus without complication (ICD-10 - E11.9) doing well on metformin 02/12/2025 Preop examination (ICD-10 - Z01.818) patient healthy. cleared for upcoming surgery 02/23/2025 Type 2 diabetes, controlled, with neuropathy (ICD-10 - E11.40) 02/25/2024 Rising PSA level (IC D-10 - R97.20) stable, will continue to monitor 02/23/2025 Rising PSA level (IC D-10 - R97.20) 02/25/2024 Pure hypertriglyceridemia (ICD-10 - E78.1) stabe, will cotinue current regiment 02/25/2024 Colon cancer screeni ng (ICD-10 - Z12.11) guaiac negative 02/25/2024 Depression screening (ICD-10 - Z13.31) negative screen 02/25/2024 Restless leg syndrom e (ICD-10 - G25.81) 02/25/2024 Skin lesion of face (ICD-10 - L98.9) is going to see derm Plan Of Treatment Pending Test Test Name Order Date Electrocardiogram (EKG) 12/16/2015 ECHO EXAM OF HEART 05/12/2015 XR CHEST 2 VIEW PA & LAT 08/27/2011 Comprehensive [place]. Panel Fast Lipid Panel 02/23/2025 PSA,Total (Free>4and<10) 02/23/2025 Microalbumin, Random 02/23/2025 Next Appt Details Provider Name:Rashad Hernandez ier, 03/02/2025 09:30:00 AM, [address] [facility], [address], [place], [place], [id number], Insurance Providers Payer Name Payer Address Payer Phone Subscriber Number Group Number Insured Name Patient Relationship to Insured Coverage Start Date Coverage End Date [employer] [address] [place] [address] [id number] Jagdish Ramirez Self - patient is the insured [facility] [address] [place] [phone] [id number] Jagdish Ramirez Self - patient is the insured Medical (General) History Medical History History ICD Code colonoscopy and endoscopy 25 09; endoscopy 11/2014 - repeat 3 years; repeat colonoscopy due in 2021. Endo done 2017 - repeat 3 years: 08/27/22 Colonoscopy pending path( 5-10yrs) had biopsy of prostate 2013 colonoscopy 2021 tubular adenoma
--- OUTSIDE RECORDS SUMMARY | 2025-02-23 13:06 | XMS_ITS | Clinical Summary ---
Author Organization [address] [place] [address] Address [address] [place] [address] Phone Care Team Providers Care Corporate Fitness Program Coordinator Name Role Phone Rashad Jerry MD Primary Care Provider Allergies No known active allergies Medications aspirin 81 mg EC tablet Take 81 mg by mouth daily. Active atorvastatin (LIPITOR) 80 mg tablet Take 1 tablet (80 mg total) by mouth 1 (one) time each day. 02/07/2024 Active empagliflozin (Jardiance) 25 mg tablet Take 1 tablet (25 mg total) by mouth 1 (one) time each day. Active metFORMIN (GLUCOPHAGE) 500 mg tablet Take 1,000 mg by mouth 2 times daily. Active metoprolol succinate (TOPROL-XL) 50 mg 24 hr tablet Take 1 tablet (50 mg total) by mouth 1 (one) time each day. 07/31/2024 Active omeprazole (PriLOSEC) [address] capsule Take 40 mg by mouth daily. Active rOPINIRole (REQUIP) 1 mg tablet Take 1 mg by mouth at bedtime. Active SITagliptin phosphate (Januvia) 100 mg tablet Take 100 mg by mouth daily. Active lisinopriL (PRINIVIL,ZESTR IL) 5 mg tablet TAKE 1 TABLET DAILY 90 tablet 1 10/05/2024 Active icosapent ethyL (VASCEPA) 1 gram capsule Take 2 capsules (2 g total) by mouth 2 (two) times a day with meals. 180 each 3 01/15/2025 Active Active Problems Problem Noted Date Diagnosed Date Primary hypertension 01/19/2025 Assessment & Plan (01/19/2025 10:19 AM EDT): Blood pressure is normal on his current medicines and diet. Coronary artery disease 01/24/2023 Overview (08/17/2024): Presented in 2019 to [facility] with a anterior wall myocardial infarction. He had a relatively small ID. He had a circumflex stent placed. There was a 60% stenosis in the mid RCA and a 70% stenosis in the mid LAD. He was initially on aspirin and Brilinta with the Brilinta stopped a year later. He is tolerating his medical regimen that includes aspirin, atorvastatin, metoprolol and lisinopril. He is normotensive. His LDL is at goal. He has metabolic syndrome with a low HDL and diabetes that is treated with Jardiance and metformin as well as Januvia. Last Assessment & Plan: Doing well from a coronary disease standpoint with no active angina. No signs of myocardial infarction by ECG. Stress echo showed no ischemia and normal left ventricular function. He is on excellent medications with goal LDL achieved. I spent quite a bit of time discussing my suggestion that he follow a low carbohydrate diet for both his diabetes and coronary disease. 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 I have no plans for additional testing barring development of new symptoms and I will see him in 1 year. Assessment & Plan (01/19/2025 10:19 AM EDT): Stable coronary disease with no signs of active angina. Continue with lipid- lowering using Vascepa and atorvastatin. I continue to encourage efforts at weight loss and exercise regularly but he does not exercise and is not planning to in general. 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 Hypertriglyceridemia 01/24/2023 Overview (08/17/2024): Elevated triglycerides in the 300s in the setting of diabetes and coronary disease. Last Assessment & Plan: Currently on Vascepa and atorvastatin. I discussed the data regarding Vascepa called into question based on the placebo trial having been you using the oil that is potentially harmful. Nevertheless, fish oil should be helpful in this situation and try to lower triglycerides and encouraged a very strict low carbohydrate diet which she may or may not pursue. Assessment & Plan (01/19/2025 10:19 AM EDT): Continue with Vascepa and a low carbohydrate diet Encounters Date Type Department Care Team Description 02/04/[address] [facility] Cardiology [facility] [address] [place] [address] Cate Hyde NP 01/25/2025 7:30 AM EDT Ancillary Procedure [facility] [address] [place] [address] Coronary artery disease involving [place] coronary artery of [place] heart without angina pectoris 01/19/2025 9:55 AM EDT Office Visit [facility] Card[facility] [address] [place] [address] Andrew Lamar MD Coronary artery disease involving k[place] coronary artery of [place] heart without angina pectoris (Primary Dx); Hypertriglyceridemia; Primary hypertension 01/12/[address] [facility] Cardiology [facility] [address] [place] [address] Andrew Lamar MD Med Refill from Last 3 Months Social History Tobacco Use Types Packs/Day Years Used Date Smoking Tobacco: Former Smokeless Tobacco: Never Alcohol Use Standard Drinks/Week Comments Yes 0 (1 standard drink = 0.6 oz pur e alcohol) Sex and Gender Information Value Date Recorded Sex Assigned at Not on file Legal Sex Male 6:51 PM EST Gender Identity Not on file Sexual Orientation Not on file Obstetrics History Last Filed Vital Signs Vital Sign Reading Time Taken Comments Blood Pressure 122/76 01/19/2025 9:43 AM EDT Pulse 72 01/24/2023 1:54 PM EDT Temperature - - Respiratory Rate - - Oxygen Saturation 96% 01/19/2025 9:43 AM EDT Inhaled Oxygen Concentration - - Weight 103 kg (228 lb) 01/25/2025 8:12 AM EDT Height 167.6 cm (5' 6 ) 01/25/2025 8:12 AM EDT Body Mass Index 36.8 01/25/2025 8:12 AM EDT Plan of Treatment Upcoming Encounters Date Type Department Care Team (Late st Contact Info) Description 05/04/2025 7:30 AM EDT Ancillary Procedure [facility] [address] [place] [address] Health Maintenance Due Date Last Done Comments RSV Immunization Adult Patients (1 - Risk 60-74 years 1-dose series) 2013 Abdominal Aortic Aneurysm (AAA) Screen 09/08/2022 Cholesterol Screening (Lipid Panel) 09/08/2022 Colorectal Cancer Screening: Colonoscopy 09/08/2022 Depression Screening 09/08/2022 Falls Risk Assessment 09/08/2022 Hepatitis C Screening 09/08/2022 Medicare Annual Wellness Visit 09/08/2022 Social Influencers of Health Screening 09/08/2022 Hypertension/CHF/CAD Annual BMP Blood Test 11/05/2023 COVID-19 Vaccine ( season) 2024 06/29/2024, 07/18/2023, 02/25/2023, Additional history exists DTaP,Tdap,and Td Vaccines (2 - Td or Tdap) 04/03/2028 04/03/2018 Zoster Vaccines Completed 2018, 06/07, 04/03/2018 Pneumococcal Vaccine: 50+ Years Completed 11/09/2019, 10/14/2018, 10/14/2017 Influenza Vaccine Completed 06/29/2024, , 08/23/2022, Additional history exists HIB Vaccines Aged Out No longer eligi ble based on patient's age to complete this topic HPV Vaccines Aged Out No longer eligi ble based on patient's age to complete this topic Hepatitis A Vaccines Aged Out No long er eligible based on patient's age to complete this topic Hepatitis B Vaccines Aged Out No long er eligible based on patient's age to complete this topic IPV Vaccines Aged Out No longer eligi ble based on patient's age to complete this topic MMR Vaccines Aged Out No longer eligi ble based on patient's age to complete this topic Meningococcal ACWY Vaccine Aged Out N o longer eligible based on patient's age to complete this topic Meningococcal B Vaccine Aged Out No l onger eligible based on patient's age to complete this topic RSV Immunization Patients Under 20 months Aged Out No longer eligible based on patient's age to complete this topic Varicella Vaccines Aged Out No longer eligible based on patient's age to complete this topic Procedures Procedure Name Priority Date/Time Associated Diagnosis Comments STRESS ECHOCARDIOGRAM EXERCISE Routine 01/25/2025 8:12 AM EDT Coronary artery disease involving [place] coronary artery of [place] heart without angina pectoris ECG 12-LEAD Routine 01/19/2025 10:20 AM EDT Coronary artery disease involving [place] coronary artery of [place] heart without angina pectoris from Last 3 Months Results * STRESS ECHOCARDIOGRAM EXERCISE (01/25/2025 8:12 AM EDT) [facility] BSA 2.19 m2 CV PACS STRESS Exercise/injec tion duration (min) 6 CV PACS STRESS Exercise/injec tion duration (sec) 15 CV PACS STRESS Peak SBP 130 mmHg CV PACS STRESS Peak DBP 80 mmHg CV PACS STRESS Peak HR 129 bpm CV PACS STRESS Baseline HR 77 bpm CV PACS STRESS Baseline SBP 114 mmHg CV PACS STRESS Baseline DBP 70 mmHg CV PACS STRESS Estimated workload 7.7 METS CV PACS STRESS Percent HR 87 % CV PACS STRESS Rate Pressure Product 16,770.0 mmHg*bpm CV PACS STRESS Target HR 127 bpm CV PACS STRESS Angina Index 0 CV PACS STRESS Max HR Percent 86 % CV PA CS STRESS Anatomical Region Laterality Modality Ultrasound 01/25/2025 7:35 AM EDT 01/25/2025 8:17 AM EDT Narrative 01/25/2025 5:49 PM EDT ?This is a technically difficult exercise echocardiogram due to image limitation post exercise. ??Endocardial border not seen in parasternal views post exercise. ??Apical 2 chamber views are also difficult post exercise. ??Apical inferior ischemia cannot be excluded. ?No ischemia EKG change with exercise. ?Exercise capacity was average. Normal blood pressure response. ?Would suggest exercise nuclear perfusion stress test. Left Ventricle Left ventricle cavity size is normal. Systolic function is normal with an ejection fraction of 55-60%. Right Ventricle Right ventricle cavity appears normal. Systolic function is normal. Mitral Valve Mitral valve structure is normal. There is trace regurgitation. Tricuspid Valve There is no regurgitation. Study Details Overall the study quality was adequate. Stress Findings A Vipul protocol stress test was performed. Overall, the patient's exercise capacity was average. Total stress time was 6 min and 15 sec. The patient experienced no angina during the test. The test was stopped because the patient experienced fatigue. The patient's hemodynamic response was adequate for diagnosis. Blood pressure demonstrated a normal response. Heart rate demonstrated a normal response. The patient reported dyspnea during the stress test which resolved in recovery. ECG 69 year old with a history of coronary artery disease status post stent to the cx in 2018, DM, HTN. 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 Last dose metoprolol 01/24/25. The ECG shows normal sinus rhythm. Non-specific ST abnormalities noted at baseline. There were no arrhythmias during stress. There is no significant ST abnormalities during stress. There were no arrhythmias during recovery. Echo Post Stress Left ventricular cavity size decreased from baseline. Left ventricular systolic function improved from baseline. Post exercise parasternal images are extremely difficult. Apical 2 images post exercise are also limited. Cannot exclude hypokinesis of apical inferior wall. Cate Hyde NP CV ECHO PROCEDURES Final Res ult * ECG 12 lead (01/19/2025 10:20 AM EDT) Ventricular Rate ECG 69 BPM GEMUSE Atrial Rate 69 BPM GEMUSE P-R Interval 160 ms GEMUSE QRS Duration 102 ms GEMUSE Q-T Interval 380 ms GEMUSE QTc 407 ms GEMUSE P Wave [place] 44 degrees GEMUSE R [place] -53 degrees GEMUSE T [place] -24 degrees GEMUSE ECG Interpretation Normal sinus rhythm Left anterior fascicular block Nonspecific T wave abnormality Abnormal ECG When compared with ECG of 23-MAR-2002 10:49, Left anterior fascicular block is now Present T wave inversion more evident in Inferior leads Nonspecific T wave abnormality now evident in Lateral leads GEMUSE 01/19/2025 9:50 AM EDT Narrative GEMUSE - 01/19/2025 10:20 AM EDT Sinus rhythm 69 bpm. ??Left axis deviation. ??Otherwise normal ECG us Andrew Lamar MD ECG ORDERABLES Final Result GEMUSE from Last 3 Months Insurance MEDICARE MERGED WITH [facility] Care Teams Corporate Fitness Program Coordinator Relationship Specialty Start Date End Date Rashad Jerry MD [address] [place] [address] Drive [address] [place] [address] PCP - General Internal Medicine 01/29/25
--- OUTSIDE RECORDS SUMMARY | 2025-02-23 13:06 | XMS_ITS ---
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 Assessments Encounter Date Diagnosis (ICD Code) Assessment Notes Treatment Notes Treatment Clinical Notes Section Notes 01/29/2025 Type 2 diabetes, controlled, with neuropathy (ICD-10 - E11.40) Plan Of Treatment Medication Medication Name Sig Start Date Stop Date Notes Jardiance 25 mg take 1 tablet daily Orally Once a day for 90 days Next Appt Details Provider Name:Rashad aldrich, 03/02/2025 09:30:00 AM, [address], [address], [place], [place], [phone], Progress Notes * Jagdish CORTEZ MDOB:1954 (69 yo M)Acc No.[id number]:01/29/2025 Patient:?Jagdish CORTEZ :1955???Age:69 Y???Sex:Male Address:[address] [place] [address] * Refills? Refill Jardiance Tablet, 25 mg, Orally, 90, take 1 tablet daily, Once a day, 90 days, Refills=3 * true * Date:? Generated for Aleks medina/Ted/Aelxsmitting on:?02/23/2025 01:06 PM EDT
--- OUTSIDE RECORDS SUMMARY | 2025-02-23 13:06 | XMS_ITS ---
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 Panel Fa st (Not yet reviewed by provider) Interpretation: Performing Lab:[facility], [address] [place] [phone] Notes/Report: Sodium 139 135-145 mmol/L Potassium 4.3 [...] yet reviewe d by provider) Interpretation: Performing Lab:[address] [phone] Notes/Report: Triglycerides 851 <150 mg/dL Slight Lipemia. [...] t yet reviewed by provider) Interpretation: Performing Lab:[address] [phone] Notes/Report: PSA,Total (Free>4and<10) 1.32 0.00-4.00 ng/mL A [...] ye t reviewed by provider) Interpretation: Performing Lab:[address] [phone] Notes/Report: Creatinine Urine 77.06 Microalbumin Urine 15.0 Microalbum/Creatinine Ratio Ur 19.4 <30 ug/mg cr Albumin/Creatinine Ratio Reference Ranges: Normal: < 30 ug/mg creatinine Microalbuminuria: 30 - 300 ug/mg creatinine Clinical Albuminuria: > 300 ug/mg creatinine Complete Blood Count Auto Di ff Reviewed date:02/23/2025 12:32:26 PM Interpretation: Performing Lab:[facility], [address] [place] [phone] Notes/Report: White Blood Count 7.1 4.8-10.8 X10*3/uL [...] A1c Reviewed date:02/23/2025 12:32:04 PM Interpretation: Performing Lab:[facility], [address] [place] [phone] Notes/Report: Hemoglobin A1c % 7.4 <6.0 % [...] average glucose, using the formula of the [id number] Average Glucose study (ADAG), Diabetes Care, Vol.31,#8, May. 2007 UA ClnCatch+Micro w/rflx Cul t Reviewed date:02/23/2025 12:35:45 PM Interpretation: Performing Lab:[facility], [address] [place] [phone] Notes/Report: Urine, Clean Catch Color Urine Yellow Appearance Urine Clear PH 5.5 5.0-9.0 Glucose Urine UA >=1000 Negative mg/dL Urine Blood Negative Negative Specific [place] - Urine >= 1.030 1.005-1.025 Urine Protein Negative Neg-Trace mg/dL Urine Ketones Negative Negative mg/dL Nitrite Urine Negative Negative Leukocyte Esterase Urine Negative Negative RBC Urine 0-2 0-2 /HPF WBC Urine 0-5 0-5 /HPF Squamous Epithelial Cell Urine 0-2 0-2 /HPF Bacteria Urine None Seen None Seen Hyaline Casts Urine 0-2 0-2 /LPF REASON FOR VISIT fasting yearly labs Encounters Encounter Location Date Provider Diagnosis Rashad Jerry MD [address] [place] [address] Drive [address] [place], [place] [phone] 02/23/2025 Rashad Jerry Blood tests for rout ine general physical examination Z00.00 ; Pure hypertriglyceridemia E78.1 ; Type 2 diabetes, controlled, 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 Panel Fast Lipid Panel 02/23/2025 PSA,Total (Free>4and<10) 02/23/2025 Microalbumin, Random 02/23/2025 Next Appt Details Provider Name:Rashad Hernandez ier, 03/02/2025 09:30:00 AM, [address] [place] [address], [address], [place], [phone], Progress Notes * Jagdish CORTEZ MDOB:1954 (69 yo M)Acc No.[id number]:02/23/2025 Progress Note Patient:?BONIFACIOSAURAVALVARO Jagdish Beata Provider:?Rashad Jerry MD :1955???Age:69 Y???Sex:Male Alexys e:02/23/2025 Address:[address] [place], [place] [phone] Subjective: * Chief Complaints: * ???1. Fasting yearly labs. * Medical History:? Objective: * Vitals:? Assessment: * Assessment: 1.?Blood tests for routine g eneral physical examination - Z00.00 (Primary)???2.?Pure hypertriglyceridemia - E78.1???3.?Type 2 diabetes, controlled, with neuropathy - E11.40???4.?Rising PSA level - R97.20??? Plan: * Treatment: 2.?Pure hypertriglyceridemia ?LAB: Comprehensive [place]. Panel Fast (Collection Date & Time - 02/23/2025 07:30 AM) ?LAB: Lipid Panel (Collection Date & Time - 02/23/2025 07:30 AM) ?LAB: PSA,Total (Free>4and<10) (Collection Date & Time - 02/23/2025 07:30 AM) ?LAB: Microalbumin, Random (Collection Date & Time - 02/23/2025 07:30 AM) ?LAB: Complete Blood Count Auto Diff (Collection Date & Time - 02/23/2025 07:30 AM) ?LAB: Hemoglobin A1c (Collection Date & Time 02/23/2025 07:30 AM) ?LAB: UA ClnCatch+Micro w/rflx Cult (Collection Date & Time - 02/23/2025 07:30 AM) 3.?Type 2 diabetes, controll ed, with neuropathy?LAB: Comprehensive [place]. Panel Fast (Collection Date & Time - 02/23/2025 07:30 AM) ?LAB: Lipid Panel (Collection Date & Time 02/23/2025 07:30 AM) ?LAB: PSA,Total (Free>4and<10) (Collection Date & Time - 02/23/2025 07:30 AM) ?LAB: Microalbumin, Random (Collection Date & Time 02/23/2025 07:30 AM) ?LAB: Complete Blood Count Auto Diff (Collection Date & Time 02/23/2025 07:30 AM) ?LAB: Hemoglobin A1c (Collection Date & Time 02/23/2025 07:30 AM) ?LAB: UA ClnCatch+Micro w/rflx Cult (Collection Date & Time 02/23/2025 07:30 AM) 4.?Rising PSA level?LAB: Comprehensive [place]. Panel Fast (Collection Date & Time 02/23/2025 07:30 AM) ?LAB: Lipid Panel (Collection Date & Time 02/23/2025 07:30 AM) ?LAB: PSA,Total (Free>4and<10) (Collection Date & Time - 02/23/2025 07:30 AM) ?LAB: Microalbumin, Random (Collection Date & Time 02/23/2025 07:30 AM) ?LAB: Complete Blood Count Auto Diff (Collection Date & Time 02/23/2025 07:30 AM) ?LAB: Hemoglobin A1c (Collection Date & Time 02/23/2025 07:30 AM) ?LAB: UA ClnCatch+Micro w/rflx Cult (Collection Date & Time - 02/23/2025 07:30 AM) * Procedure Codes:?13535 VENIP UNCT, ROUTINE* * * The named appointment provid er may or may not be the originator of this progress note, and it is not deemed complete until electronically signed by the appointment provider. Sign off status: Pending * Provider:?Rashad Jerry MD Date:?0 02/23/2025 Generated for Aleks medina/Ted/Malikitting on:?02/23/2025 01:05 PM EDT
--- OUTSIDE RECORDS SUMMARY | 2025-02-23 13:06 | XMS_ITS ---
Author Organization [facility] Address [address] [place] [address] Care Team Providers Care Rate Analyst Name Role Phone Claritza JAUREGUI, Rashad Primary Care Provider Marciano Jacob Unavailable [phone] Allergies No Known Allergies REASON FOR VISIT Patient presents today for an egd recall Medications Medication SIG (Take, Route, Frequency, Duration) Notes Start Date End Date Status metFORMIN HCl 1000 MG Orally Active Atorvastatin Calcium 80 MG 1 tablet Oral ly Once a day Active Lisinopril 5 MG 1 tablet Orally Once a day Active Aspir-81 Active Omeprazole 40 Milligram TAKE ONE CAPSULE (S) EVERY DAY BY MOUTH for 90 02/08/2014 Active Jardiance 25 MG 1 tablet Orally Once a day Active rOPINIRole HCl 1 MG Orally Active Fish Oil Active Omeprazole 40 MG 1 capsule Orally Onc e a day 07/08/2011 Active Metoprolol Succinate ER 50 MG Oral for 90 Active Januvia 100 MG 1 tablet Orally Once a day Active Vital Signs Temperature 97.1 degrees Fahrenheit 06/10/20 24 Blood pressure systolic 000 mm Hg 06/10/20 24 Blood pressure diastolic 00 mm Hg 024 Height 66.5 in 06/10/2024 Weight 232 lbs 06/10/2024 BMI 36.88 kg/m2 06/10/2024 Encounters Encounter Location Date Provider Diagnosis [facility] [address] [place] [address] 06/10/2024 Marciano Rodríguez Barretts esophagus without dysplasia K22.70 ; Encounter for screening for malignant neoplasm of colon Z12.11 and Gastroesophageal reflux disease without esophagitis K21.9 Assessments Encounter Date Diagnosis (ICD Code) Assessment Notes Treatment Notes Treatment Clinical Notes Section Notes 06/10/2024 Barretts esophagus without dysplasia (ICD-10 - K22.70) Do not take the Jardiance and Januvia for THREE days before the procedure Do not take the Metformin or aspirin the morning of the procedure Do not take the fish oil for 1 week before the procedure DO NOT EAT AFTER 8:00PMTHE NIGHT BEFORE THE PROCEDURE Overall, Curtis appears well. His reflux is well controlled on a daily 40 mg omeprazole. I did advise him to continue that on a long-term basis. Given his history of Bedoya's esophagus and his last upper endoscopy being over 3 years ago, I did recommend a followup upper endoscopy for further surveillance purposes. We did review the rationale for that in regards to the theoretical increased risk of esophageal cancer in patients with Bedoya's esophagus. Full consent was obtained for the endoscopy, including risks of bleeding and perforation. The procedure will be done with monitored anesthesia care. He was given the below instructions regarding adjustment of his medications and diet before the procedure. We also reviewed that he will be due for a followup screening colonoscopy in 2026 given the history of a tubular adenoma removed in 2021. Curtis was comfortable with this plan. Thank you again for allowing me to participate in Curtis's care. I shall continue to keep you advised of his progress. 06/10/2024 Encounter for screening for malignant neoplasm of colon (ICD-10 - Z12.11) Repeat colonoscopy in 2026 Overall, Curtis appears well. His reflux is well controlled on a daily 40 mg omeprazole. I did advise him to continue that on a long-term basis. Given his history of Bedoya's esophagus and his last upper endoscopy being over 3 years ago, I did recommend a followup upper endoscopy for further surveillance purposes. We did review the rationale for that in regards to the theoretical increased risk of esophageal cancer in patients with Bedoya's esophagus. Full consent was obtained for the endoscopy, including risks of bleeding and perforation. The procedure will be done with monitored anesthesia care. He was given the below instructions regarding adjustment of his medications and diet before the procedure. We also reviewed that he will be due for a followup screening colonoscopy in 2026 given the history of a tubular adenoma removed in 2021. Curtis was comfortable with this plan. Thank you again for allowing me to participate in Curtis's care. I shall continue to keep you advised of his progress. 06/10/2024 Gastroesophageal reflux disease without esophagitis (ICD-10 - K21.9) Overall, Curtis appears well. His reflux is well controlled on a daily 40 mg omeprazole. I did advise him to continue that on a long-term basis. Given his history of Bedoya's esophagus and his last upper endoscopy being over 3 years ago, I did recommend a followup upper endoscopy for further surveillance purposes. We did review the rationale for that in regards to the theoretical increased risk of esophageal cancer in patients with Bedoya's esophagus. Full consent was obtained for the endoscopy, including risks of bleeding and perforation. The procedure will be done with monitored anesthesia care. He was given the below instructions regarding adjustment of his medications and diet before the procedure. We also reviewed that he will be due for a followup screening colonoscopy in 2026 given the history of a tubular adenoma removed in 2021. Curtis was comfortable with this plan. Thank you again for allowing me to participate in Curtis's care. I shall continue to keep you advised of his progress. Plan Of Treatment Treatment Notes Assessment Notes Barretts esophagus without dysplasia Do not take the Jardiance and Januvia for THREE days before the procedure Do not take the Metformin or aspirin the morning of the procedure Do not take the fish oil for 1 week before the procedure DO NOT EAT AFTER 8:00PMTHE NIGHT BEFORE THE PROCEDURE Encounter for screening for malignant neoplasm of colon Repeat colonoscopy in 2026 Future Test Test Name Order Date UPPER GI ENDOSCOPY 06/10/2024 Next Appt Details Follow Up: prn, Reason: Progress Notes * CURTIS CORTEZ MDOB:1954 (68 yo M)Acc No.[id number]:06/10/2024 Progress Notes Patient:?CURTIS CORTEZ Provider:?Marciano Rodríguez MD :1955???Age:68 Y???Sex:Male Alexys e:06/10/2024 Address:[address] [place], [place] [id number] Pcp:Rashad Jerry MD Subjective: * Chief Complaints: * ???Patient presents today fo r an egd recall * HPI: ???incontinence:? I saw Curtis in followup today in regard to his underlying history of chronic gastroesophageal reflux with associated Bedoya's esophagus, and his history of a tubular adenoma of the colon. ?I last saw Curtis in August of 2022, at which time he underwent a followup screening colonoscopy with removal of a small cecal tubular adenoma. He has continued to feel well on his daily 40 mg omeprazole. He denies any significant heartburn, dysphagia, anorexia, nausea, vomiting, nor early satiety. He denies abdominal pain, jaundice, nor weight loss. He denies any particular change in bowel habits, hematochezia, nor melena. His last upper endoscopy in 2020 revealed his small area of Bedoya's esophagus with biopsies negative for dysplasia. ?His laboratories from this past May revealed a normal CBC, liver profile, and chemistries. * ROS:?General/Constitutional:?Change in appetite?denies.?Chills?denies.?Fatigue?denies.?Ophthalmologic:?Patient denies? Negative..?ENT:?Patient denies?Negative..?Respiratory:?Patient denies?No coughing/hemoptysis..?Cardiovascular:?Patient denies? No chest pain/orthopnea..?Gastrointestinal:?Comments?See HPI for details.?Genitourinary:?Patient denies? No dysuria/hematuria..?Musculoskeletal:?Patient denies? No specific arthralgias/myalgias..?Skin:?Patient denies?No rash/pruritus..?Neurologic:?Patient denies? No headaches/seizures..?Psychiatric:?Patient denies?Negative..? * Medical History:? * Surgical History:?Bilateral inguinal hernia-- Dr. Glackin Vasectomy Tonsillectomy Penile prosthesis 01/2021 TURP * Hospitalization/Major Diagno stic Procedure:?No Hospitalization History. * Family History:?Father: dece ased 66 yrs, prostate cancer.?Mother: 93 yrs, alzheimer's dementia.?Siblings: diagnosed with Diabetes.? Brother had colon cancer in his 60's. 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 ???Stopped smoking >5 years ago, and does not use any sig. amount of alcohol. * Medications:?TakingFish Oil rOPINIRole HCl 1 MG Tablet Orally Omeprazole 40 Milligram Sustained Release Capsule TAKE ONE CAPSULE(S) EVERY DAY BY MOUTH Aspir-81 Lisinopril 5 MG Tablet 1 tablet Orally Once a dayAtorvastatin Calcium 80 MG Tablet 1 tablet Orally Once a daymetFORMIN HCl 1000 MG Tablet Orally Januvia 100 MG Tablet 1 tablet Orally Once a dayJardiance 25 MG Tablet 1 tablet Orally Once a dayMetoprolol Succinate ER 50 MG Tablet Extended Release 24 Hour Oral Omeprazole 40 MG Capsule Delayed Release 1 capsule Orally Once a dayMedication List reviewed and reconciled with the patientTaking Fish Oil Taking rOPINIRole HCl 1 MG Tablet Orally Taking Omeprazole 40 Milligram Sustained Release Capsule TAKE ONE CAPSULE(S) EVERY DAY BY MOUTH Taking Aspir-81 Taking Lisinopril 5 MG Tablet 1 tablet Orally Once a dayTaking Atorvastatin Calcium 80 MG Tablet 1 tablet Orally Once a dayTaking metFORMIN HCl 1000 MG Tablet Orally Taking Januvia 100 MG Tablet 1 tablet Orally Once a dayTaking Jardiance 25 MG Tablet 1 tablet Orally Once a dayTaking Metoprolol Succinate ER 50 MG Tablet Extended Release 24 Hour Oral Taking Omeprazole 40 MG Capsule Delayed Release 1 capsule Orally Once a dayMedication List reviewed and reconciled with the patient * Allergies:?N.K.D.A.yes[Aller gies Verified] Objective: * Vitals:?Wt: 232 lbs, Ht: 66. 5 in, BMI:36.88 Index, BP: 000/00 mm Hg, Temp: 97.1. * Examination: ???General Examination: ?GENERAL APPEARANCE:?pleasant, well nourished, well developed, in no acute distress.?EYES:?sclera non-icteric.?ORAL CAVITY:?mucosa moist.?NECK/THYROID:?no cervical lymphadenopathy, neck supple.?SKIN:?nonjaundiced, no spider angiomata..?HEART:?S1, S2 normal.?LUNGS:?clear to auscultation bilaterally.?ABDOMEN:?normal bowel sounds, no guarding or rigidity, no hepatosplenomegaly, no masses palpable, soft, nontender, nondistended..?EXTREMITIES:?no edema.?NEUROLOGIC:?alert and oriented.? Assessment: * Assessment: 1.?Barretts esophagus withou t dysplasia - K22.70 (Primary)?2.?Encounter for screening for malignant neoplasm of colon - Z12.11?3.?Gastroesophageal reflux disease without esophagitis - K21.9? Overall, Curtis appears wel l. His reflux is well controlled on a daily 40 mg omeprazole. I did advise him to continue that on a long-term basis. Given his history of Bedoya's esophagus and his last upper endoscopy being over 3 years ago, I did recommend a followup upper endoscopy for further surveillance purposes. We did review the rationale for that in regards to the theoretical increased risk of esophageal cancer in patients with Bedoya's esophagus. Full consent was obtained for the endoscopy, including risks of bleeding and perforation. The procedure will be done with monitored anesthesia care. He was given the below instructions regarding adjustment of his medications and diet before the procedure. We also reviewed that he will be due for a followup screening colonoscopy in 2026 given the history of a tubular adenoma removed in 2021. Curtis was comfortable with this plan. Thank you again for allowing me to participate in Curtis's care. I shall continue to keep you advised of his progress. Plan: * Treatment: Notes: Do not take the Jardiance and Januvia for THREE days before the procedure Do not take the Metformin or aspirin the morning of the procedure Do not take the fish oil for 1 week before the procedure DO NOT EAT AFTER 8:00PMTHE NIGHT BEFORE THE PROCEDURE??2.?Encounter for screening for malignant neoplasm of colon? Notes: Repeat colonoscopy in 2026??3.?Gastroesophageal reflux disease without esophagitis?Procedure: UPPER GI ENDOSCOPY (Ordered for 06/10/2024)* with MAC scheduled at [facility] on 10-26-2023 at 7:30 a.m. do not eat after 8:00 p.m. the night before the procedure. No metformin or aspiring the morning of the procedure. Stop fish oil one week prior and no Jardiance and Januvia for three days before the procedure * Procedure Codes:?3017F COLOR ECTAL CA SCREEN DOC [id number] TOBACCO [id number] BP SCR NOT PRFRM REC REASON NOS * Preventive Medicine:? ??Counseling:?Care goal follow-up plan:?Above Normal BMI Follow-up?Giving encouragement to exercise,?BMI management provided?Yes.? ??Screenings:?Fall Risk Screening?Fall Risk Assessment:?No falls in the past year.? * Follow Up:?prn * * Sign off status: Completed true * Provider:?Marcinao Rodríguez MD Date:? 024 Generated for Aleks medina/Ted/Malikitting on:?02/23/2025 01:05 PM EDT History and Physical Notes * HPI (History of Present Illness) Category Sub-Category Detail Notes Category Not es incontinence I saw Curtis in followup today in regard to his underlying history of chronic gastroesophageal reflux with associated Bedoya's esophagus, and his history of a tubular adenoma of the colon. I last saw Curtis in August of 2022, at which time he underwent a followup screening colonoscopy with removal of a small cecal tubular adenoma. He has continued to feel well on his daily 40 mg omeprazole. He denies any significant heartburn, dysphagia, anorexia, nausea, vomiting, nor early satiety. He denies abdominal pain, jaundice, nor weight loss. He denies any particular change in bowel habits, hematochezia, nor melena. His last upper endoscopy in 2020 revealed his small area of Bedoya's esophagus with biopsies negative for dysplasia. His laboratories from this past February revealed a normal CBC, liver profile, and chemistries. Examination Category Sub-Category Detail Notes Category Not es General Examination GENERAL APPEARANCE: pleasant , well nourished, well developed, in no acute distress EYES: sclera non-icteric NECK/THYROID: no cervical lymphade nopathy, neck supple HEART: S1, S2 normal LUNGS: clear to auscultatio n bilaterally ABDOMEN: normal bowel sounds, no guarding or rigidity, no hepatosplenomegaly, no masses palpable, soft, nontender, nondistended. NEUROLOGIC: alert and oriented SKIN: nonjaundiced, no spi radha angiomata. EXTREMITIES: no edema ORAL CAVITY: mucosa moist
--- OUTSIDE RECORDS SUMMARY | 2025-02-23 13:06 | XMS_ITS | Clinical Summary ---
Author Organization [facility] Address [address] [place] [address] Care Team Providers Care Chaser Helper Name Role Phone Unavailable Primary Care Provider Unavailabl e Social History Tobacco Use Types Packs/Day Years Used Date Smoking Tobacco: Never Assessed Sex and Gender Information Value Date Recorded Sex Assigned at Not on file Legal Sex Male 1:37 PM EDT Gender Identity Not on file Sexual Orientation Not on file Plan of Treatment Health Maintenance Due Date Last Done Comments Hepatitis C Virus Screening 1955 DTaP/Tdap/Td Vaccines (1 - Tdap) 1972 Pneumococcal Vaccines 50+ (1 of 1 - PCV) 2003 Zoster (Shingles) Vaccine (1 of 2) 2003 COVID-19 Vaccine ( - 2023-2 5 season) 2024 RSV Vaccine 60 years and old er and Patients (1 - 1-dose 75+ series) 2028 Hepatitis B Vaccines Aged Out No long er eligible based on patient's age to complete this topic
--- OUTSIDE RECORDS SUMMARY | 2025-02-23 13:06 | XMS_ITS | Patient Health Record ---
Author Organization [facility] Address [address] [place] [address] Care Team Providers Care Side Seam Machine Operator Name Role Phone Claritza JAUREGUI, Rashad Primary Care Provider Marciano Jacob Unavailable [phone] Allergies No Known Allergies Results Component Value Reference Range Notes Glucose, Whole Blood Reviewed date:08/17/2024 11:52:34 PM Interpretation: Performing Lab:[facility], [address] [place] [phone] Notes/Report: Glucose, Whole Blood 186 60-115 mg/dL METER # : [id number] Pathology (Not yet reviewed by provider) Interpretation: Performing Lab:[facility], [address] [place] [phone] Notes/Report: ----- Name: Venu Cortez Age/Sex: 69/M : 1955 Unit#: [id number] Attend Dr: Marciano Rodríguez MD Re08/17/24 Status : [facility] Location: [facility] Disch: ----- SPEC : [id number] RECD : 08/17/24 STATUS: ARLYN LOFTON NUM: [id number] ALEX: 08/17/24 [facility] DR: Marciano Rodríguez MD ENTERED: 08/17/24 SP TYPE: Surgical OTHR DR: Rashad Jerry MD ORDERED: HE Stain/3, Gross Micro L4, Eso bx BA w/exc COMMENTS: 8 unstaine d slides sent to [employer] for [facility] on 08/20/24. Addendum Addendum 1 Entered: 09/07/24 [employer]: Risk c lass Low; risk score 3.2 See report in its entirety in the EMR - Reports/Pathology section as a scanned report (camera icon). If appropriate, a copy has also been sent to the ordering provider's office. Addendum Signed (signature on file) Jamir Crystal MD 09/07/241141 ----- Diagnosis Eg junction, 35 cm, biopsy: - Bedoya esophagus with background moderate chronic, focally active, inflammation. - No dysplasia seen. - Squamous mucosa wi thin normal limits. - Multiple additiona l levels examined. Comment: TissueCyphe r results will be addended. 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 Material Received EG junction at 35 cm , h/o Bedoya's and reflux CONTINUED ON NEXT PAGE ----- Name: Venu Cortez Age/Sex: 69/M : 1955 Unit#: [id number] Attend Dr: Marciano Rodríguez MD Re08/17/24 Status : [facility] Location: [facility] Disch: ----- SPEC : [id number] RECD : 08/17/24 STATUS: ARLYN LOFTON NUM: [id number] ALEX: 08/17/24 [facility] DR: Marciano Rodríguez MD ENTERED: 08/17/24- SP TYPE: Surgical OTHR DR: Rashad Jerry MD ORDERED: HE Stain/3, Gross Micro L4, Eso bx BA w/exc COMMENTS: 8 unstaine d slides sent to [employer] for [facility]her on 08/20/24. Gross Description Received in formalin labeled ?EG junction at 35, history Bedoya's and reflux? are 5 clifford- white and clifford-pink irregular tissue fragments ranging from 0.15-0.25 cm, submitted in toto in a cassette deny Ambrocio CEDS This case was review ed intradepartmentally. Copies To: Rashad Jerry MD [facility] [address] [place] [address] Marciano Rodríguez MD [facility] [address] [place] [address] ----- Signed (signature on file) Jamir Crystal MD 08/19/24 1552 ----- END OF REPORT Reason For Referral No Information Medications Medication SIG (Take, Route, Frequency, Duration) Notes Start Date End Date Status Jardiance 25 MG 1 tablet Orally Once a day Active Januvia 100 MG 1 tablet Orally Once a day Active metFORMIN HCl 1000 MG Orally Active Atorvastatin Calcium 80 MG 1 tablet Oral ly Once a day Active Lisinopril 5 MG 1 tablet Orally Once a day Active Aspir-81 Active Omeprazole 40 Milligram TAKE ONE CAPSULE (S) EVERY DAY BY MOUTH for 90 02/08/2014 Active rOPINIRole HCl 1 MG Orally Active Fish Oil Active Omeprazole 40 MG 1 capsule Orally Onc a day 07/08/2011 Active Metoprolol Succinate ER 50 MG Oral for 90 Active Immunizations Vaccine Route Administration Date Status Comme nts Influenza Unknown 07/07/2021 Administered Influenza Unknown 07/30/2023 Administered Problems Problem Type SNOMED Code ICD Code Onset Dates Problem Status W/U Status Risk Notes Problem Esophageal reflux (185960273) Esophageal reflux (K21.9) Active confirmed Problem Gastro-esophage al reflux disease without esophagitis (834058202) Gastro-esophageal reflux disease without esophagitis (K21.9) Active confirmed Problem Screening for malignant neoplasm of colon (856275859) Encounter for screening for malignant neoplasm of colon (Z12.11) Active confirmed Problem 011982784 Gastroesophageal reflux disease without esophagitis (K21.9) Active confirmed Problem 418441055 Barretts esophag us without dysplasia (K22.70) Active confirmed Problem Gastric polyp (00465282) Gastric polyp (K31.7) Active confirmed Problem Bedoya esophagus (588137799) Bedoya esophagus (K22.70) Active confirmed Problem 707335649 Retained food in stomach (K31.89) Active confirmed Problem Bedoya''s esophagus without dysplasia (K22.70) Active confirmed Problem Diverticular disease of colon (260198543) Colon, diverticulosis (K57.30) Active confirmed Vital Signs Temperature 97.1 degrees Fahrenheit 06/10/2024 Blood pressure diastolic 00 mm Hg 06/10/2024 Height 66.5 in 06/10/2024 Blood pressure systolic 000 mm Hg 06/10/2024 Weight 232 lbs 06/10/2024 BMI 36.88 kg/m2 06/10/2024 Encounters Encounter Location Date Provider Diagnosis [facility] Out[facility] [address] [place] [phone] 08/17/2024 Marciano Rodríguez Bedoya''s esophagus without dysplasia K22.70 ; Gastro-esophageal reflux disease without esophagitis K21.9 ; Hiatal hernia K44.9 and Gastric polyp K31.7 [facility] [address] [place] [address] 06/10/2024 Marciano Rodríguez Barretts esophagus without dysplasia K22.70 ; Encounter for screening for malignant neoplasm of colon Z12.11 and Gastroesophageal reflux disease without esophagitis K21.9 Assessments Encounter Date Diagnosis (ICD Code) Assessment Notes Treatment Notes Treatment Clinical Notes Section Notes 08/17/2024 Gastro-esophageal reflux disease without esophagitis (ICD-10 - K21.9) 08/17/2024 Bedoya''s esophagus without dysplasia (ICD-10 - K22.70) 06/10/2024 Encounter for screening for malignant neoplasm [...] keep you advised of his progress. 06/10/2024 Barretts esophagus without dysplasia (ICD-10 - [...] to keep you advised of his progress. 08/17/2024 Hiatal hernia (ICD-10 - K44.9) 06/10/2024 Gastroesophageal reflux disease without esophagitis (ICD-10 [...] of a tubular adenoma removed in 2021. uCrtis was comfortable with this plan. Thank you again for allowing me to participate in Curtis's care. I shall continue to keep you advised of his progress. 08/17/2024 Gastric polyp (ICD-10 - K31.7) Plan Of Treatment Pending Test Test Name Order Date NUC GASTRIC ANTRUM EMPTYING 04/03/2021 Pathology 08/17/2024 Future Test Test Name Order Date UPPER GI ENDOSCOPY 05/20/2014 UPPER GI ENDOSCOPY 01/21/2018 UPPER GI ENDOSCOPY 03/15/2021 COLONOSCOPY 04/24/2022 UPPER GI ENDOSCOPY 06/10/2024 Insurance Providers Payer Name Payer Address Payer Phone Subscriber Number Group Number Insured Name Patient Relationship to Insured Coverage Start Date Coverage End Date MEDICARE OF [place] [address] [place] [address] [id number] CURTIS CORTEZ Self - patient is the insured Phone[employer] [address] [place] [address] [id number] CURTIS CORTEZ Self - patient is the insured Medical (General) History Medical History History ICD Code GERD with Bedoya's esophagu s and esophagitis--last EGD with bx was neg for dysplasia in 03/2018--small to moderate-sized HH and benign gastric polyps. There was no esophagitis. BPH Sleep apnea, using a CPAP machine Restless leg syndrome Denies CVA,Lung disease,renal disease Elevated PSA-going for a prostate biopsy week of 05/24/14---benign Mild iron def. anemia from b lood donations--in 2011 he had a neg w/u with 3 neg. Hemoccult cards, neg colonoscopy, and neg upper endo with duodenal biopsies--known HH and Bedoya's was seen-no bx done at that time Low testosterone level Neg. screening colonoscopy in 2003 Heart Attack - 12/24/2018-1 stent placed Erectile dysfunction Hyperlipidemia NIDDM HTN Upper endoscopy in March revealed a moderate-sized hiatal hernia, Bedoya's esophagus with all biopsies negative for dysplasia, and some evidence of gastric retention. A followup nuclear medicine gastric emptying study was normal and he has been asymptomatic in regard to any possible symptoms of gastroparesis. Screening colonoscopy in Aug with a small cecal tubular adenoma removed Surgical History Surgery Date(Month/Year) Bilateral inguinal hernia-- Dr. Max Vasectomy Tonsillectomy Penile prosthesis 01/2021 TURP
== END 2025-02-23 07:31 | disposition home or self-care (01) ==
LOC: HO.LNP 07:30
PROVIDERS: Visit Provider Internal Medicine
DX: Z00.00 Encounter for general adult medical examination without abnormal findings (principal); E78.1 Pure hyperglyceridemia; E11.40 Type 2 diabetes mellitus with diabetic neuropathy, unspecified; R97.20 Elevated prostate specific antigen [PSA]; Z12.5 Encounter for screening for malignant neoplasm of prostate
CPT/HCPCS: 80053; 80061; 81001; 82043; 82570; 83036; 84153; 85025

== ENCOUNTER → 2025-05-10 07:41 | Outpatient (BNVA) | payer SELFPAY | PROVIDERS: PCP Internal Medicine; Visit Provider Internal Medicine | DX: Z02.79 Encounter for issue of other medical certificate (principal) ==

== ENCOUNTER 2025-08-16 10:57 | Outpatient (REF) | payer MEDICARE, SELFPAY ==
[2025-08-16 11:44] LABS: Alanine Aminotransferase 27 U/L (0-40); Albumin Level 4.7 g/dL (3.5-5.0); Alkaline Phosphatase 83 U/L (39-117); Aspartate Amino Transferase 42 U/L (5-37); Cholesterol 143 mg/dL (<200); HDL Cholesterol 33 mg/dL (>40); Total Protein 7.0 g/dL (6.5-8.0); Triglycerides 384 mg/dL (<150)
[2025-08-16 12:58] LABS: Reflex LDLD? No
--- OUTSIDE RECORDS SUMMARY | 2025-08-16 13:06 | XMS_ITS | Clinical Summary ---
Author Organization [address] [place] [address] Address [address] [place] [address] Phone Care Team Providers Care Dining Service Supervisor Name Role Phone Rashad Jerry MD Primary [...] Take 100 mg by mouth daily. Active icosapent ethyL (VASCEPA) 1 gram capsule Take 2 capsules (2 g total) by mouth 2 (two) times a day with meals. 180 each 3 01/15/2025 Active lisinopriL (PRINIVIL,ZESTR IL) 5 mg tablet TAKE 1 TABLET DAILY 90 tablet 3 04/15/2025 Active Active Problems Problem Noted Date Diagnosed Date Primary hypertension 01/19/2025 Assessment & Plan (01/19/2025 10:19 AM EDT): Blood pressure is normal on his current medicines and diet. Coronary artery disease 01/24/2023 Overview (08/17/2024): Presented in [facility] to [facility] with a anterior wall myocardial infarction. He had a relatively small MS. He had a circumflex stent placed. There [...] with Vascepa and a low carbohydrate diet Social History Tobacco Use Types Packs/Day Years Used Date Smoking Tobacco: Former Smokeless Tobacco: Never Alcohol Use Standard Drinks/Week Comments Yes 0 (1 standard drink = 0.6 oz pur e alcohol) socially Sex and Gender Information Value Date Recorded Sex Assigned at Not on file Legal Sex Male 6:51 PM EST Gender Identity Not on file Sexual Orientation Not on file Obstetrics History Last Filed Vital Signs Vital Sign Reading Time Taken Comments Blood Pressure 117/84 05/04/2025 7:54 AM EDT Pulse 72 01/24/2023 1:54 PM EDT Temperature - - Respiratory Rate - - Oxygen Saturation 96% 01/19/2025 9:43 AM EDT Inhaled Oxygen Concentration - - Weight 102 kg (224 lb) 05/04/2025 7:27 AM EDT Height 167.6 cm (5' 6 ) 05/04/2025 7:27 AM EDT Body Mass Index 36.15 05/04/2025 7:27 AM EDT Plan of Treatment Health Maintenance Due Date Last Done Comments Colorectal Cancer Screening: Colonoscopy 1955 IPV Vaccines (2 of 3 - 4-dose series) 05/04/1971 04/06/1971 RSV Immunization Adult Patients (1 - Risk 50-74 years 1-dose series) 2003 Abdominal Aortic Aneurysm (AAA) Screen 09/08/2022 Cholesterol Screening (Lipid Panel) 09/08/2022 Falls Risk Assessment 09/08/2022 Hepatitis C Screening 09/08/2022 Medicare Annual Wellness Visit 09/08/2022 Social Influencers of Health Screening 09/08/2022 Hypertension/CHF/CAD Annual BMP Blood Test 11/05/2023 Depression Screening 10/07/2024 COVID-19 Vaccine ( season) 2025 06/29/2024, 07/18/2023, 02/25/2023, Additional history exists Influenza Vaccine (#1) 2025 4, 07/09/2023, 08/23/2022, Additional history exists DTaP,Tdap,and Td Vaccines (4 - Td or Tdap) 04/03/2028 04/03/2018, 07/12/2002, 07/07/1992 MMR Vaccines Aged Out 01/13/2000 No longer eligi ble based on patient's age to complete this topic Meningococcal ACWY Vaccine Aged Out 01/14/2000 N o longer eligible based on patient's age to complete this topic Hepatitis A Vaccines Aged Out 03/09/2000, 09/09/19 99 No longer eligible based on patient's age to complete this topic Zoster Vaccines Completed 2018, 06/07, 04/03/2018 Pneumococcal Vaccine: 50+ Years Completed 11/09/2019, 10/14/2018, 10/14/2017 HIB Vaccines Aged Out No longer eligi [...] on patient's age to complete this topic Insurance [facility] Member Subscriber Plan / Payer (Ef fective 2023-Present) Name:CURTIS CORTEZ Relation to Subscriber:Self Name:Curtis Cortez Payer ID:[id number] Group ID:Not on file Type:Not on file Address: [facility] [address] [id number] Care Teams Dining Service Supervisor Relationship Specialty Start Date End Date Rashad Jerry MD [address] [place] [id number] PCP - General Internal Medicine 01/29/25
--- OUTSIDE RECORDS SUMMARY | 2025-08-16 13:06 | XMS_ITS | Clinical Summary ---
Author Organization [facility] Address [address] [place] [phone] Phone Care Team Providers Care Service Operator Name Role Phone Unknown, Unknown Primary Care Provider Carol mcgee Social History Tobacco Use Types Packs/Day Years Used Date Smoking Tobacco: Never Assessed Education Answer Date Recorded Are you interested in more education? Not on geo e 02/01/2023 Are you concerned about learning? Not on file 02/01/2023 No 02/01/2023 No 02/01/2023 Digital Access Answer Date Recorded No 03/04/2023 No 03/04/2023 No 03/04/2023 Reliable internet access at home? Not on file 03/04/2023 Device with a working camera? Not on file Sex and Gender Information Value Date Recorded Sex Assigned at Not on file Legal Sex Male 9:58 PM EDT Gender Identity Not on file Sexual Orientation Not on file Plan of Treatment Not on file Medical Devices Not on [place] [id number] [facility] Address: [address] [place] [address] [facility] [place] [address] [place] [address] [facility] Member Subscriber Plan / Payer ( fective 2013-Present) Name:BipintonnyCurtis Relation to Subscriber:Self Name:CURTIS CORTEZ Payer ID:[id number] (NAIC) Group ID:[id number] Type:PPO Address: [facility] [id number] [place] [facility] [place] [address] [facility] Member Subscriber Plan / Payer ( fective 2013-Present) Name:Curtis Cortez Relation to Subscriber:Self Name:CURTIS CORTEZ Payer ID:[id number] (NAIC) Group ID:[id number] Type:PPO Address: [facility] [id number] [place] [address] [employer] Member Subscriber Plan / Payer ( fective 2013-Present) Name:Curtis Cortez Relation to Subscriber:Self Name:CURTIS CORTEZ Payer ID:[id number] (NAIC) Group ID:[id number] Type:PPO Address: [id number] [place] [address] [facility] [place] [address] [facility] Address: [address] [place] [address] Care Teams Service Operator Relationship Specialty Start Date End Date Unknown, Unknown, PCP - General 04/06/18 Additional Source Comments The information contained in this document represents components of the legal health record. It is not the complete legal health record.[facility]
== END 2025-08-16 10:58 | disposition home or self-care (01) ==
LOC: HO.LNP 10:57
PROVIDERS: Visit Provider Internal Medicine
DX: E11.40 Type 2 diabetes mellitus with diabetic neuropathy, unspecified (principal); E78.1 Pure hyperglyceridemia
CPT/HCPCS: 80061; 80076; 82947; 83036